=== PATIENT | female | born 2000 | race Two or more races ===

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

== ENCOUNTER 2020-02-24 16:56 | Outpatient (CLI) | payer MEDICAID ==
--- NOTE | 2020-02-25 09:59 | XRAY Report ---
PROCEDURE: Lumbar Spine Complete INDICATIONS: LUMBAR BACK PAIN TECHNIQUE: 4 views of the lumbar spine were acquired. COMPARISON: None. FINDINGS: Bones: 5 [id number] vertebrae are present. There is normal bony alignment. No vertebral body compression fractures. No suspicious bony lesions. No pars defects on the oblique views. Soft tissues: Overlying bowel gas pattern is normal. No suspicious soft tissue calcifications. IMPRESSION: Lumbar spine without acute radiographic abnormalities or significant spondylosis. Reviewed by: Sean Ellison MD on 02/25/2020 9:58 AM PDT Approved by: Sean Ellison MD on 02/25/2020 9:58 AM PDT Station ID: [id number]
== END 2020-02-24 16:57 | disposition home or self-care (01) ==
LOC: DI 16:56
PROVIDERS: ATTEND Family Medicine
DX: M54.5 Low back pain (principal)
CPT/HCPCS: 72110

== ENCOUNTER 2020-08-01 08:00 | Outpatient (CLI) | payer MEDICAID ==
[2020-08-01 18:20] LABS: BASOPHILS % (AUTO) 0.3 %; EOSINOPHILS # (AUTO) 0.1 10^3/uL (0.0-0.7); EOSINOPHILS % (AUTO) 1.2 %; HCT - HEMATOCRIT 43.1 % (37.0-47.0); HGB - HEMOGLOBIN 13.9 g/dL (12.0-16.0); LYMPHOCYTES # (AUTO) 1.5 10^3/uL (1.5-3.5); LYMPHOCYTES % (AUTO) 21.9 %; MEAN CORPUSCULAR HEMOGLOBIN 28.7 pg (27.0-31.0); MEAN CORPUSCULAR HGB CONC 32.3 g/dL (32.0-36.0); MEAN PLATELET VOLUME 10.8 fL (7.9-10.8); MONOCYTES # (AUTO) 0.5 10^3/uL (0.0-1.0); MONOCYTES % (AUTO) 7.2 %; NEUTROPHILS # (AUTO) 4.7 10^3/uL (1.5-6.6); NEUTROPHILS % (AUTO) 69.1 %; PLT - PLATELET COUNT 258 10^3/uL (130-450); RED BLOOD COUNT 4.84 10^6/uL (4.20-5.40); WHITE BLOOD COUNT 6.8 x10^3/uL (4.8-10.8)
[2020-08-01 19:18] LABS: % IRON SATURATION 19 % (20-50); ALBUMIN 4.7 g/dL (3.2-5.5); ALBUMIN/GLOBULIN RATIO 1.4 (1.0-2.2); ALKALINE PHOSPHATASE 55 IU/L (42-121); ALT ALANINE AMINOTRANSFERASE 15 IU/L (10-60); AST ASPARTATE AMINOTRANSFERASE 18 IU/L (10-42); BILIRUBIN,TOTAL 0.8 mg/dL (0.2-1.0); BUN - BLOOD UREA NITROGEN 11 mg/dL (6-20); CALCIUM 9.3 mg/dL (8.5-10.3); CARBON DIOXIDE - CO2 22 mmol/L (21-32); CHLORIDE 102 mmol/L (101-111); CREATININE 0.6 mg/dL (0.4-1.0); GFR - MDRD 127 (>89); GLUCOSE 79 mg/dL (70-100); IRON 83 ug/dL (28-170); POTASSIUM 3.8 mmol/L (3.5-5.0); SODIUM 134 mmol/L (135-145); THYROID STIMULATING HORMONE 1.06 uIU/mL (0.34-5.60); TOTAL IRON BINDING CAPACITY 434 ug/dL (250-450); TOTAL PROTEIN 8.1 g/dL (6.7-8.2); TRANSFERRIN 310 mg/dL (192-382)
[2020-08-01 19:24] LABS: FERRITIN 13.3 ng/mL (11.0-306.8)
[2020-08-01 19:44] LABS: CRP - C-REACTIVE PROTEIN < 1.0 mg/dL (0-1.0)
[2020-08-01 19:54] LABS: RHEUMATOID FACTOR NEGATIVE (Negative)
[2020-08-03 12:32] LABS: ANA SCREEN NEGATIVE (NEGATIVE)
== END 2020-08-01 23:59 | disposition home or self-care (01) ==
LOC: LAB.WCP 08:00
PROVIDERS: ATTEND Internal Medicine
DX: Z39.2 Encounter for routine postpartum follow-up (principal); M54.5 Low back pain; G89.29 Other chronic pain
CPT/HCPCS: 36415; 80053; 82728; 83540; 84443; 84466; 85025; 85651; 86038; 86140; 86200; 86430; 86812

== ENCOUNTER 2021-05-16 23:25 | Emergency (ER) | payer MEDICAID ==
--- NOTE | 2021-05-17 00:24 | XRAY Report ---
PROCEDURE: Hand 3 View RT INDICATIONS: Punched wall, now has pain and swelling to R hand. TECHNIQUE: 3 views of the hand(s) acquired. COMPARISON: None FINDINGS: Bones: Acute oblique fracture through fifth metacarpal base is seen with slight dorsal displacement a t fracture site. No other fracture or dislocation. No suspicious bony lesions. Soft tissues: Soft tissue swelling over dorsal aspect of fifth metacarpal bone is seen. No suspicious soft tissue calcifications. IMPRESSION: Slightly displaced fifth metacarpal base fracture as above. Reviewed by: Joey Marin MD on 05/17/2021 12:23 AM PST Approved by: Joey Marin MD on 05/17/2021 12:23 AM PST Station ID: [id number]
--- NOTE | 2021-05-17 01:26 | ED Physician Documentation ---
PD HPI UPPER EXT INJURY - Stated complaint Stated Complaint: RT HAND INJ - Chief complaint Chief Complaint: Ext Problem - History obtained from History obtained from: Patient - History of Present Illness Location: Right, Hand Type of injury: Blunt / blow Where injury occurred: Home Timing - onset: Enter time (22:30), Today Timing - details: Abrupt onset Pain level now: 6 Improved by: Rest Worsened by: Moving, Palpating Associated symptoms: Swelling Similar symptoms before: Has not had sx before - Additonal information Additional information: c/o sudden onset right hand pain when she punched a wall. She is right hand dominant. Review of Systems Skin: reports: Reviewed and negative Musculoskeletal: reports: Extremity pain, Extremity swelling Neurologic: denies: Focal weakness, Numbness PD PAST MEDICAL HISTORY - Past Medical History Cardiovascular: None Respiratory: None Neuro: None Endocrine/Autoimmune: None GI: None PHOTO LAB TECHNICIAN: None : None HEENT: None Psych: Depression, Anxiety, Post traumatic stress disorder Musculoskeletal: None Derm: None - Past Surgical History Past Surgical History: No - Present Medications Home Medications: Ambulatory Orders Medication Instructions Recorded Confirmed HYDROcod/ACETAM 5/325 [Alexis 5/325] 1 - 2 tablet PO Q6H PRN #14 tablet 05/17/21 - Allergies Allergies/Adverse Reactions: Allergies Allergy/AdvReac Type Severity Reaction Status Date / Time No Known Drug Allergies Allergy Verified 05/16/21 23:34 - Social History Does the pt smoke?: No Smoking Status: Never smoker Does the pt drink ETOH?: No Does the pt have substance abuse?: Yes - Immunizations Immunizations are current?: Yes - POLST Patient has POLST: No PD ED PE NORMAL - Vitals Vital signs reviewed: Yes - General General: Alert and oriented X 3, No acute distress, Well developed/nourished - Neuro Neuro: No motor deficit, No sensory deficit PD ED PE EXPANDED - Extremities Extremities: Tenderness, Swelling, Bruising, Other (right hand tenderness, swelling, echymosis greatest over proximal aspect of 5th metacarpal and at third and fourth metacarpal heads) Results - Vitals Vitals: Oxygen O2 Source Room air - Rads (name of study) right hand xrays Radiology: Prelim report reviewed, See rad report Procedures - Splint (location) Upper extremity right Splint applied by: Physician Type of splint: Fiberglass, Short arm, Ulnar gutter Other: Patient tolerated well, No complications, Neurovascular intact, Sling provided PD MEDICAL DECISION MAKING - ED course Complexity details: reviewed results, considered differential, d/w patient ED course: right boxers fracture after punching a wall tonight. ulnar gutter splint placed by me. She is given vicodin prior to d/c (is being driven home) with rx for same transmitted to her pharmacy. Results d/w patient, outpatient orthopedic f/u recommended. Departure - Departure Disposition: Home, Self Care Clinical Impression: Boxers fracture Condition: Good Instructions: ED Fx Boxer Follow-Up: Margarito Sparks MD [Provider Admit Priv/Credential] - Within 1 week Prescriptions: HYDROcod/ACETAM 5/325 [Alexis 5/325] 1 - 2 tablet PO Q6H PRN #14 tablet PRN Reason: Pain Comments: A prescription for hydrocodone / acetaminophen (pain medication) has been electronically submitted to [facility]'s pharmacy in [place]. Follow up with orthopedic surgery within one week. Discharge Date/Time: 05/17/21 02:13
[2021-05-17] MEDS: HYDROcod/ACETAM 5/325 MG TABLET PO STA (01:59)
[2021-05-17 02:12] VITALS: BP 133/87
== END 2021-05-17 02:13 | disposition home or self-care (01) ==
LOC: ED 23:25
DX: S62.316A Displaced fracture of base of fifth metacarpal bone, right hand, initial encounter for closed fracture (principal); W22.8XXA Striking against or struck by other objects, initial encounter
CPT/HCPCS: 29125; 73130; 99283; A9270

== ENCOUNTER 2021-05-18 16:22 | Outpatient (CLI) | payer MEDICAID ==
--- NOTE | 2021-05-18 20:36 | XRAY Report ---
PROCEDURE: Hand 3 View RT INDICATIONS: DISPLACED FX OF TECHNIQUE: 3 views of the hand(s) acquired. COMPARISON: 05/16/2021 FINDINGS: Bones: Again noted is slightly displaced fracture involving fifth metacarpal base unchanged in overal l right hand alignment compared to previous study. No new fracture or dislocation is seen. No suspici ous bony lesions. Soft tissues: No suspicious soft tissue calcifications. IMPRESSION: Slightly displaced fifth metacarpal base fracture with unchanged alignment. No new fracture or disloc ation. Reviewed by: Joey Marin MD on 05/18/2021 8:35 PM PST Approved by: Joey Marin MD on 05/18/2021 8:35 PM PST Station ID: [id number]
== END 2021-05-18 23:59 | disposition home or self-care (01) ==
LOC: DI.N 16:22
PROVIDERS: ATTEND Registered Nurse
DX: S62.316D Displaced fracture of base of fifth metacarpal bone, right hand, subsequent encounter for fracture with routine healing (principal)

== ENCOUNTER 2021-07-10 12:24 | Emergency (ER) | payer MEDICAID ==
[2021-07-10 13:08] LABS: BASOPHILS % (AUTO) 0.2 %; EOSINOPHILS % (AUTO) 0.2 %; HCT - HEMATOCRIT 45.6 % (37.0-47.0); HGB - HEMOGLOBIN 15.9 g/dL (12.0-16.0); LYMPHOCYTES # (AUTO) 1.5 10^3/uL (1.5-3.5); LYMPHOCYTES % (AUTO) 14.6 %; MEAN CORPUSCULAR HEMOGLOBIN 29.2 pg (27.0-31.0); MEAN CORPUSCULAR HGB CONC 34.9 g/dL (32.0-36.0); MEAN CORPUSCULAR VOLUME 83.8 fL (81.0-99.0); MEAN PLATELET VOLUME 9.8 fL (7.9-10.8); MONOCYTES # (AUTO) 0.7 10^3/uL (0.0-1.0); MONOCYTES % (AUTO) 7.3 %; NEUTROPHILS # (AUTO) 7.8 10^3/uL (1.5-6.6); NEUTROPHILS % (AUTO) 77.2 %; PLT - PLATELET COUNT 319 10^3/uL (130-450); RED BLOOD COUNT 5.44 10^6/uL (4.20-5.40); RED CELL DISTRIBUTION WIDTH 12.2 % (12.0-15.0); WHITE BLOOD COUNT 10.1 x10^3/uL (4.8-10.8)
--- OUTSIDE RECORDS SUMMARY | 2021-07-10 13:12 | EXTERNAL MEDICAL SUMMARY RPT | Continuity of Care Document ---
:2000 Author Organization [facility] Address [address] [place] [address] Phone Care Team Providers Name Role Phone Mar Unavailable Unavailable Allergies No information. Encounters No information. Medications date description facility 20210708 Promethazine Hydrochloride 25 MG Rectal Suppository [facility] 20210708 Ondansetron 4 MG Disintegrating Tablet [facility] Problems Procedures date description facility 20210707 General Physician [facility] Results No information. Vital Signs date measurement value source 20210707 weight_standard 170 lb 20210707 weight_metric 77.11 kg 20210707 temperature_standard 97 F 20210707 temperature_metric 36.11 C 20210708 respiration_rate 18 /min 20210708 heart_rate 89 /min 20210708 BP_systolic 135 mm[Hg] 20210708 BP_diastolic 86 mm[Hg]
[2021-07-10] MEDS ORDERED: ONDANSETRON ODT 4 MG TABLET TL STA (13:40)
[2021-07-10 14:30] LABS: ALBUMIN 4.8 g/dL (3.2-5.5); ALBUMIN/GLOBULIN RATIO 1.6 (1.0-2.2); BILIRUBIN,TOTAL 1.5 mg/dL (0.2-1.0); CALCIUM 10.2 mg/dL (8.5-10.3); CREATININE 1.1 mg/dL (0.4-1.0); POTASSIUM 3.7 mmol/L (3.5-5.0); TOTAL PROTEIN 7.8 g/dL (6.7-8.2)
[2021-07-10] MEDS ORDERED: DROPERIDOL 5 MG/2 ML VIAL IM STA (14:44)
--- NOTE | 2021-07-10 14:53 | ED Physician Documentation ---
History of Present Illness - Stated complaint Stated Complaint: VOMITING - Chief complaint Chief Complaint: Abd Pain - History obtained from History obtained from: Patient - Additonal information Additional information: Patient comes to the emergency department chief complaint of vomiting for 7 days. The patient has a 6-year history Of cyclical vomiting, for which she has been seen in various emergency departments multiple times. She states that she uses Zofran and antiemetic suppositories at home and they never seem to help. She states usually she states that pacing and does not get much sleep while she is having an episode. She states however that being up actually makes her nausea worse. The patient states she got Zofran in the waiting room here and is feeling better and has been able to sleep a little bit. She states her mouth is dry and she would like some ice chips. The patient was seen at [facility] a couple days ago for the same thing was given multiple medications including Zofran, Haldol, and something else she cannot remember the name of and was given IV fluids. She states that they had a difficult time getting her to tolerate fluids orally right after the meds and finally discharged her home. The patient states she was feeling a little better overnight but then woke up feeling nauseated again which is her usual pattern. She states she does not want to le ave until she can be guaranteed that she will wake up nauseated again. She states she has seen her primary care physician and is previously seen a compliance review specialist who diagnosed her with H. pylori and then did a scope and told her she did not have H. pylori or any gastritis or ulcers. She states that her primary doctor has referred her to another compliance review specialist now. She states her mother has cyclical vomiting issues as well. The patient has a 1-year-old at home and states she is under a lot of stress because she is dealing with this plus trying to care for her child. She does smoke marijuana but is resistant to the idea that marijuana may be related to her illness. No other complaints at this time. Review of Systems Ten Systems: 10 systems reviewed and negative Constitutional: reports: Reviewed and negative Eyes: reports: Reviewed and negative Ears: reports: Reviewed and negative Nose: reports: Reviewed and negative Throat: reports: Reviewed and negative Cardiac: reports: Reviewed and negative Respiratory: reports: Reviewed and negative GI: reports: Nausea, Vomiting. denies: Abdominal Pain : reports: Reviewed and negative Skin: reports: Reviewed and negative Musculoskeletal: reports: Reviewed and negative Neurologic: reports: Reviewed and negative Psychiatric: reports: Reviewed and negative Endocrine: reports: Reviewed and negative Immunocompromised: reports: Reviewed and negative PD PAST MEDICAL HISTORY - Past Medical History Cardiovascular: None Respiratory: None Neuro: None Endocrine/Autoimmune: None GI: None MIME ARTIST: None : None HEENT: None Psych: Depression, Anxiety, Post traumatic stress disorder Musculoskeletal: None Derm: None - Past Surgical History Past Surgical History: No - Present Medications Home Medications: Ambulatory Orders Medication Instructions Recorded Confirmed HYDROcod/ACETAM 5/325 [[place] 5/325] 1 - 2 tablet PO Q6H PRN #14 tablet 05/17/21 - Allergies Allergies/Adverse Reactions: Allergies Allergy/AdvReac Type Severity Reaction Status Date / Time No Known Drug Allergies Allergy Verified 07/10/21 12:35 - Social History Does the pt smoke?: No Smoking Status: Never smoker Does the pt drink ETOH?: No Does the pt have substance abuse?: Yes - Immunizations Immunizations are current?: Yes - POLST Patient has POLST: No PD ED PE NORMAL - Vitals Vital signs reviewed: Yes - General General: Alert and oriented X 3, No acute distress, Well developed/nourished - HEENT HEENT: Atraumatic, PERRL, EOMI, Moist mucous membranes - Neck Neck: Supple, no meningeal sign - Cardiac Cardiac: RRR, No murmur, Strong equal pulses - Respiratory Respiratory: No respiratory distress, Clear bilaterally - Abdomen Abdomen: Soft, Non distended, Other (Mild lower abdominal tenderness, no rebound or guarding) - Derm Derm: Normal color, Warm and dry - Extremities Extremities: No deformity, No edema - Neuro Neuro: Alert and oriented X 3, rewinder 2-12 intact, Normal speech - Psych Psych: Normal mood, Normal affect Results - Vitals Vitals: Vital Signs - 24 hr 07/10/21 07/10/21 12:32 15:02 Temperature 36.4 C L 36.6 C Heart Rate 82 71 Respiratory 16 16 Rate Blood Pressure 150/107 H 122/92 H O2 Saturation 97 99 Oxygen O2 Source Room air - Labs Labs: Laboratory Tests 07/10/21 07/10/21 13:02 13:02 WBC 10.1 RBC 5.44 H Hgb 15.9 Hct 45.6 MCV 83.8 MCH 29.2 MCHC 34.9 RDW 12.2 Plt Count 319 MPV 9.8 Neut # (Auto) 7.8 H Lymph # (Auto) 1.5 [place] # (Auto) 0.7 Eos # (Auto) 0.0 Baso # (Auto) 0.0 Absolute Nucleated RBC 0.00 Nucleated RBC % 0.0 Sodium 133 L Potassium 3.7 Chloride 91 L Carbon Dioxide 30 Anion Gap 12.0 BUN 15 Creatinine 1.1 H Estimated GFR (MDRD) 63 L Glucose 111 H Calcium 10.2 Total Bilirubin 1.5 H AST 13 ALT 15 Alkaline Phosphatase 57 Total Protein 7.8 Albumin 4.8 Globulin 3.0 Albumin/Globulin Ratio 1.6 Lipase 33 PD MEDICAL DECISION MAKING - ED course Complexity details: considered differential, d/w patient ED course: I discussed with the patient that at this point in time, I cannot guarantee that the patient will not wake up nauseated, because she has this issue chronically and so far, has not found a good solution for it. I have discussed with her that I do not feel that it is always helpful to do a p.o. challenge in the ED because usually, it is best to give the stomach a break for several hours from any intake and a chance to settle down. The patient has been allowed to suck on a couple of ice chips here and has been given doses of both Zofran and droperidol. Her blood work is unremarkable. I discussed with her that it is very important that she follow up on the plan to see another compliance review specialist. She has also been advised regarding the marijuana. We have discussed the usual indications for return. Departure - Departure Disposition: 01 Home, Self Care Clinical Impression: Cyclical vomiting Condition: Stable Instructions: ED Nausea Vomiting Comments: You have been treated with 2 different antinausea medicines in the emergency department. You should give your stomach a rest of several hours before trying to put anything else in it, to allow it to settle down to be less likely to vomit again. After this, you may take small sips of water or a single ice chip at a time, with a 15 to 20-minute wait in between. If you are able to hold down the initial ice chips or spoonful of water, you may take another 1 after 15 to 20 minutes. You may continue to do this as long as you do not vomit at 15 to 20-minute intervals with not more than 1 ice chip or one spoonful of water. If you tolerate this for several times, then you may wait only 10 minutes between the sips of water or ice chips. You should continue to take your nausea medi cine at home, as usual. Please follow-up with your doctor to discuss moving forward with a referral for a second opinion by gastroenterology.
[2021-07-10 15:02] VITALS: BP 122/92
== END 2021-07-10 15:53 | disposition home or self-care (01) ==
LOC: ED 12:24
DX: R11.15 Cyclical vomiting syndrome unrelated to migraine (principal)
CPT/HCPCS: 36415; 80053; 83690; 85025; 96372; 99283; 99284; Q0162

== ENCOUNTER 2021-07-14 18:17 | Outpatient (CLI) | payer MEDICAID ==
[2021-07-14 21:28] LABS: BASOPHILS % (AUTO) 0.2 %; EOSINOPHILS # (AUTO) 0.1 10^3/uL (0.0-0.7); EOSINOPHILS % (AUTO) 1.1 %; HCT - HEMATOCRIT 42.4 % (37.0-47.0); HGB - HEMOGLOBIN 13.9 g/dL (12.0-16.0); LYMPHOCYTES % (AUTO) 9.2 %; MEAN CORPUSCULAR HEMOGLOBIN 28.8 pg (27.0-31.0); MEAN CORPUSCULAR HGB CONC 32.8 g/dL (32.0-36.0); MEAN CORPUSCULAR VOLUME 87.8 fL (81.0-99.0); MONOCYTES # (AUTO) 0.6 10^3/uL (0.0-1.0); MONOCYTES % (AUTO) 5.9 %; NEUTROPHILS # (AUTO) 8.6 10^3/uL (1.5-6.6); PLT - PLATELET COUNT 246 10^3/uL (130-450); RED BLOOD COUNT 4.83 10^6/uL (4.20-5.40); RED CELL DISTRIBUTION WIDTH 12.6 % (12.0-15.0); WHITE BLOOD COUNT 10.4 x10^3/uL (4.8-10.8)
[2021-07-14 21:41] LABS: ALBUMIN 4.2 g/dL (3.2-5.5); ALBUMIN/GLOBULIN RATIO 1.4 (1.0-2.2); BILIRUBIN,TOTAL 1.4 mg/dL (0.2-1.0); CALCIUM 9.3 mg/dL (8.5-10.3); CREATININE 0.9 mg/dL (0.4-1.0); POTASSIUM 3.6 mmol/L (3.5-5.0); TOTAL PROTEIN 7.3 g/dL (6.7-8.2)
[2021-07-14 21:44] LABS: BILIRUBIN,URINE NEGATIVE (NEGATIVE); GLUCOSE, URINE (UA) NEGATIVE (NEGATIVE); KETONES,URINE (UA) NEGATIVE (NEGATIVE); LEUKOCYTE ESTERASE, URINE NEGATIVE (NEGATIVE); NITRITE,URINE NEGATIVE (NEGATIVE); OCCULT BLOOD,URINE NEGATIVE (NEGATIVE); PROTEIN,URINE NEGATIVE (NEGATIVE); UROBILINOGEN,URINE 0.2 (NORMAL) E.U./dL (NORMAL)
[2021-07-14 21:55] LABS: THYROID STIMULATING HORMONE 0.96 uIU/mL (0.34-5.60)
[2021-07-14 21:59] LABS: BACTERIA,URINE None Seen /HPF (None Seen); CLARITY,URINE SL. CLOUDY (CLEAR); CRYSTALS,URINE 26-50 Ca Oxalate /LPF; RBC,URINE 0-5 /HPF (0-5); SQUAMOUS EPITHELIAL CELL,UR RARE Squamous (<= Few); WBC,URINE 0-3 /HPF (0-5)
== END 2021-07-14 18:18 | disposition home or self-care (01) ==
LOC: LAB.N 18:17
PROVIDERS: ATTEND Nurse Practitioner
DX: R10.9 Unspecified abdominal pain (principal); R53.83 Other fatigue
CPT/HCPCS: 36415; 80053; 81001; 82150; 82607; 83690; 84443; 85025; 87086

== ENCOUNTER 2021-07-18 10:45 | Outpatient (CLI) | payer MEDICAID ==
--- NOTE | 2021-07-18 11:20 | XRAY Report ---
PROCEDURE: Hand 3 View RT INDICATIONS: 5TH MC FRACTURE TECHNIQUE: 3 views of the hand(s) acquired. COMPARISON: May 18, 2021 FINDINGS: BONES: The previously demonstrated displaced fracture of the fifth metacarpal base is not well seen b ut demonstrates increase sclerosis at the fracture site. SOFT TISSUES: No focal abnormality. IMPRESSION: 1.Ongoing healing of the patient's fifth metacarpal base fracture, not well visualized. Reviewed by: Manas Gutierrez MD on 07/18/2021 11:18 AM PDT Approved by: Manas Gutierrez MD on 07/18/2021 11:18 AM PDT Station ID: [id number]
== END 2021-07-18 23:59 | disposition home or self-care (01) ==
LOC: DI.WOS 10:45
PROVIDERS: ATTEND Physician Assistant
DX: S62.316D Displaced fracture of base of fifth metacarpal bone, right hand, subsequent encounter for fracture with routine healing (principal)

== ENCOUNTER 2021-10-27 08:00 | Outpatient (CLI) | payer MEDICAID ==
[2021-10-27 12:27] LABS: BASOPHILS % (AUTO) 0.1 %; HCT - HEMATOCRIT 41.4 % (37.0-47.0); HGB - HEMOGLOBIN 14.2 g/dL (12.0-16.0); LYMPHOCYTES # (AUTO) 0.9 10^3/uL (1.5-3.5); LYMPHOCYTES % (AUTO) 5.1 %; MEAN CORPUSCULAR HEMOGLOBIN 29.5 pg (27.0-31.0); MEAN CORPUSCULAR HGB CONC 34.3 g/dL (32.0-36.0); MEAN CORPUSCULAR VOLUME 86.1 fL (81.0-99.0); MEAN PLATELET VOLUME 11.2 fL (7.9-10.8); MONOCYTES # (AUTO) 0.9 10^3/uL (0.0-1.0); MONOCYTES % (AUTO) 5.1 %; NEUTROPHILS # (AUTO) 15.7 10^3/uL (1.5-6.6); NEUTROPHILS % (AUTO) 89.2 %; PLT - PLATELET COUNT 342 10^3/uL (130-450); RED BLOOD COUNT 4.81 10^6/uL (4.20-5.40); RED CELL DISTRIBUTION WIDTH 12.7 % (12.0-15.0); WHITE BLOOD COUNT 17.6 x10^3/uL (4.8-10.8)
[2021-10-27 12:45] LABS: ALBUMIN 4.8 g/dL (3.2-5.5); ALBUMIN/GLOBULIN RATIO 1.3 (1.0-2.2); BILIRUBIN,TOTAL 0.9 mg/dL (0.2-1.0); CALCIUM 10.3 mg/dL (8.5-10.3); CREATININE 0.8 mg/dL (0.4-1.0); TOTAL PROTEIN 8.5 g/dL (6.7-8.2)
[2021-10-27 12:59] LABS: HCG,QUALITATIVE BLOOD POSITIVE
== END 2021-10-27 23:59 | disposition home or self-care (01) ==
LOC: LAB.N 08:00
PROVIDERS: ATTEND Nurse Practitioner
DX: R11.10 Vomiting, unspecified (principal)
CPT/HCPCS: 36415; 80053; 82150; 83690; 84703; 85025

== ENCOUNTER 2021-10-27 13:48 | Emergency (ER) | payer MEDICAID ==
[2021-10-27 14:08] VITALS: BP 146/87
--- NOTE | 2021-10-27 16:41 | ED Physician Documentation ---
ED Addendum - Addendum Addendum: 10/27/21 16:40 21-year-old female had presented to the emergency department for nausea and vomiting. I do note that labs were obtained by an outside clinic this morning and her qualitative hCG was positive. I then added a quantitative hCG and it was greater than 155,000. The patient left without being seen before she was able to be brought back to the emergency department. I called the phone number listed for the patient requesting a phone call back to discuss the lab results. It is not clear to this provider if the patient is aware that she is 10/27/21 17:14 Phone message left again requesting return phone call.
== END 2021-10-27 16:39 | disposition left against medical advice (07) ==
LOC: ED 13:48
DX: Z53.21 Procedure and treatment not carried out due to patient leaving prior to being seen by health care provider (principal)
CPT/HCPCS: 36415; 84702

== ENCOUNTER 2021-10-28 01:15 | Emergency (ER) | payer MEDICAID ==
[2021-10-28] MEDS ORDERED: ONDANSETRON 4 MG/2 ML VIAL IVP STA (03:01)
[2021-10-28] MEDS ORDERED: SODIUM CHLORIDE 0.9% 1,000 ML IV STA ×2 (03:01→04:40)
--- NOTE | 2021-10-28 03:09 | ED Physician Documentation ---
PD HPI ABD PAIN - Stated complaint Stated Complaint: vomiting - Chief complaint Chief Complaint: Abd Pain - History obtained from History obtained from: Patient - Additional information Additional information: Patient is a 21-year-old female with a history of cyclic vomiting presenting for 4-day history of nausea and vomiting and generalized abdominal discomfort. Her last menstrual cycle was 2 months ago. She did present earlier to the emergency department but left prior to being seen. She did have blood work done that showed a positive hCG.Patient has not yet had care for this . She is a G3, P1 with 1 previous . She reports having hyperemesis with previous and had the because of her previous history of hyperemesis.She does have Zofran at home and has been using that without improvement in her symptoms. She does use cannabis but says that it is not a lot and does not believe it is contributing to her symptoms. She denies fever, chest pain or difficulty breathing. Sometimes hot showers help her symptoms. She denies diarrhea. Review of Systems Constitutional: denies: Fever Nose: denies: Congestion Cardiac: denies: Chest pain / pressure Respiratory: denies: Dyspnea, Cough GI: reports: Abdominal Pain, Nausea, Vomiting : denies: Dysuria Musculoskeletal: denies: Back pain Neurologic: denies: Headache PD PAST MEDICAL HISTORY - Past Medical History Cardiovascular: None Respiratory: None Neuro: None Endocrine/Autoimmune: None GI: None YEAST PUSHER: None : None HEENT: None Psych: Depression, Anxiety, Post traumatic stress disorder Musculoskeletal: None Derm: None - Past Surgical History Past Surgical History: No - Present Medications Home Medications: Ambulatory Orders Medication Instructions Recorded Confirmed HYDROcod/ACETAM 5/325 [[place] 5/325] 1 - 2 tablet PO Q6H PRN #14 tablet 05/17/21 - Allergies Allergies/Adverse Reactions: Allergies Allergy/AdvReac Type Severity Reaction Status Date / Time No Known Drug Allergies Allergy Verified 10/28/21 01:23 - Social History Does the pt smoke?: No Smoking Status: Never smoker Does the pt drink ETOH?: No Does the pt have substance abuse?: Yes - Immunizations Immunizations are current?: Yes - POLST Patient has POLST: No PD ED PE NORMAL - General General: Alert and oriented X 3, No acute distress, Well developed/nourished - HEENT HEENT: Atraumatic, Other (Dry oral mucosa) - Neck Neck: Supple, no meningeal sign - Cardiac Cardiac: RRR, No murmur, Strong equal pulses - Respiratory Respiratory: No respiratory distress, Clear bilaterally - Abdomen Abdomen: Normal bowel sounds, Soft, Non distended, Other (Generalized abdominal tenderness, no rebound, No guarding) - Extremities Extremities: No edema - Neuro Neuro: No motor deficit, Normal speech - Psych Psych: Normal mood Results - Vitals Vitals: Vital Signs - 24 hr 10/28/21 10/28/21 10/28/21 01:24 03:26 05:00 Temperature 36.5 C Heart Rate 69 59 L 76 Respiratory 22 24 19 Rate Blood Pressure 149/90 H 122/73 123/73 O2 Saturation 99 100 99 Oxygen O2 Source Room air - Labs Labs: Laboratory Tests 10/28/21 10/28/21 10/28/21 03:27 04:05 04:05 WBC 16.0 H RBC 4.80 Hgb 14.4 Hct 41.4 MCV 86.3 MCH 30.0 MCHC 34.8 RDW 12.2 Plt Count 292 MPV 10.2 Neut # (Auto) 14.2 H Lymph # (Auto) 0.9 L [place] # (Auto) 0.8 Eos # (Auto) 0.0 Baso # (Auto) 0.0 Absolute Nucleated RBC 0.00 Nucleated RBC % 0.0 Sodium 134 L Potassium 3.4 L Chloride 98 L Carbon Dioxide 24 Anion Gap 12.0 BUN 14 Creatinine 0.6 Estimated GFR (MDRD) 126 Glucose 113 H POC Whole Bld Glucose 117 H Calcium 9.3 Total Bilirubin 1.5 H AST 22 ALT 21 Alkaline Phosphatase 42 Total Protein 7.5 Albumin 4.2 Globulin 3.3 Albumin/Globulin Ratio 1.3 Lipase 31 Urine Color Urine Clarity Urine pH Ur Specific [place] Urine Protein Urine Glucose (UA) Urine Ketones Urine Occult Blood Urine Nitrite Urine Bilirubin Urine Urobilinogen Ur Leukocyte Esterase Urine RBC Urine WBC Ur Squamous Epith Cells Urine Bacteria Urine Mucus Ur Microscopic Review Urine Culture Comments Blood Type 10/28/21 10/28/21 04:05 04:25 WBC RBC Hgb Hct MCV MCH MCHC RDW Plt Count MPV Neut # (Auto) Lymph # (Auto) [place] # (Auto) Eos # (Auto) Baso # (Auto) Absolute Nucleated RBC Nucleated RBC % Sodium Potassium Chloride Carbon Dioxide Anion Gap BUN Creatinine Estimated GFR (MDRD) Glucose POC Whole Bld Glucose Calcium Total Bilirubin AST ALT Alkaline Phosphatase Total Protein Albumin Globulin Albumin/Globulin Ratio Lipase Urine Color YELLOW Urine Clarity HAZY Urine pH 6.5 Ur Specific [place] 1.020 Urine Protein TRACE Urine Glucose (UA) NEGATIVE Urine Ketones 40 H Urine Occult Blood NEGATIVE Urine Nitrite NEGATIVE Urine Bilirubin NEGATIVE Urine Urobilinogen 1 (NORMAL) Ur Leukocyte Esterase SMALL H Urine RBC 0-5 Urine WBC 4-5 Ur Squamous Epith Cells MOD Squamous H Urine Bacteria Few Urine Mucus Few Strands Ur Microscopic Review INDICATED Urine Culture Comments NOT INDICATED Blood Type O POSITIVE PD MEDICAL DECISION MAKING - ED course Complexity details: reviewed results, re-evaluated patient, d/w patient ED course: 0308 - + intrauterine seen on bedside ultrasound with + cardiac activity 0532 - Patient just received her second round of medications and additional IV fluids. She is pacing in the room. She reports wanting to leave as she wants to go home and take a hot shower. Discussed are planned for ultrasound when it is available later this morning.Also recommended continuing to stay for further relief of her symptoms and she continues to report severe nausea. Discussed the risks of leaving which include miscarriage, dehydration, and Not having formal ultrasound to evaluate viability and location of . Patient understands these risks and partner is at the bedside. Patient is alert and oriented x4. She appears competent and able to make medical decisions at this time. She Is counseled that she can return to the ER at any time should she change her mind. Departure - Departure Disposition: Against Medical Advice Clinical Impression: Vomiting affecting Condition: Stable Instructions: ED Preg Morning Sickness Comments: You have been evaluated for nausea and vomiting. You are also found to be . At this time it is unclear how far along you are in your . I was able to visualize The fetus with our bedside ultrasound but do not have the capabilities to tell you exactly how far along you are and if things are developing normally.I did recommend you stay so that we can obtain an ultrasound As well as continue to monitor your symptoms as they were not significantly improved. If it anytime you change your mind Or have any worsening symptoms please return to the emergency department. Discharge Date/Time: 10/28/21 05:32
[2021-10-28 04:13] LABS: BASOPHILS % (AUTO) 0.1 %; HCT - HEMATOCRIT 41.4 % (37.0-47.0); HGB - HEMOGLOBIN 14.4 g/dL (12.0-16.0); LYMPHOCYTES # (AUTO) 0.9 10^3/uL (1.5-3.5); LYMPHOCYTES % (AUTO) 5.6 %; MEAN CORPUSCULAR HGB CONC 34.8 g/dL (32.0-36.0); MEAN CORPUSCULAR VOLUME 86.3 fL (81.0-99.0); MEAN PLATELET VOLUME 10.2 fL (7.9-10.8); MONOCYTES # (AUTO) 0.8 10^3/uL (0.0-1.0); MONOCYTES % (AUTO) 5.2 %; NEUTROPHILS # (AUTO) 14.2 10^3/uL (1.5-6.6); NEUTROPHILS % (AUTO) 88.7 %; PLT - PLATELET COUNT 292 10^3/uL (130-450); RED CELL DISTRIBUTION WIDTH 12.2 % (12.0-15.0)
[2021-10-28 04:24] LABS: ALBUMIN 4.2 g/dL (3.2-5.5); ALBUMIN/GLOBULIN RATIO 1.3 (1.0-2.2); BILIRUBIN,TOTAL 1.5 mg/dL (0.2-1.0); CALCIUM 9.3 mg/dL (8.5-10.3); CREATININE 0.6 mg/dL (0.4-1.0); POTASSIUM 3.4 mmol/L (3.5-5.0); TOTAL PROTEIN 7.5 g/dL (6.7-8.2)
[2021-10-28 04:36] LABS: GLUCOSE, URINE (UA) NEGATIVE (NEGATIVE); KETONES,URINE (UA) 40 mg/dL (NEGATIVE); LEUKOCYTE ESTERASE, URINE SMALL (NEGATIVE); NITRITE,URINE NEGATIVE (NEGATIVE); OCCULT BLOOD,URINE NEGATIVE (NEGATIVE); PH,URINE 6.5 PH (5.0-7.5); PROTEIN,URINE TRACE mg/dL (NEGATIVE); UROBILINOGEN,URINE 1 (NORMAL) E.U./dL (NORMAL)
[2021-10-28] MEDS ORDERED: diphenhydrAMINE INJ 50 MG/ML VIAL IVP STA (04:38)
[2021-10-28] MEDS ORDERED: METOCLOPRAMIDE 10 MG/2 ML VIAL IVP STA (04:38)
[2021-10-28 04:43] LABS: CLARITY,URINE HAZY (CLEAR)
[2021-10-28 04:46] LABS: BACTERIA,URINE Few /HPF (None Seen); BILIRUBIN,URINE NEGATIVE (NEGATIVE); ICTOTEST,URINE NEGATIVE; MUCUS,URINE Few Strands; RBC,URINE 0-5 /HPF (0-5); SQUAMOUS EPITHELIAL CELL,UR MOD Squamous (<= Few)
[2021-10-28 05:15] VITALS: BP 123/73
== END 2021-10-28 05:32 | disposition left against medical advice (07) ==
LOC: ED 01:15
DX: O21.0 Mild hyperemesis gravidarum (principal); Z3A.00 Weeks of gestation of pregnancy not specified
CPT/HCPCS: 36415; 80053; 81001; 83690; 85025; 86900; 86901; 96374; 96375; 99282; 99284; J1200; J2765; 81003; 87086

== ENCOUNTER 2022-03-20 16:00 | Outpatient (CLI) | payer MEDICAID ==
[2022-03-21 22:00] LABS: BACTERIAL VAGINOSIS DNA POSITIVE (NEGATIVE); CANDIDA GLABRATA DNA NEGATIVE (NEGATIVE); CANDIDA GROUP DNA NEGATIVE (NEGATIVE); CANDIDA KRUSEI DNA NEGATIVE (NEGATIVE); TRICHOMONAS VAGINALIS DNA NEGATIVE (NEGATIVE)
[2022-03-21 23:12] LABS: CHLAMYDIA TRACHOMATIS DNA NEGATIVE (NEGATIVE); NEISSERIA GONORRHOEAE DNA NEGATIVE (NEGATIVE)
== END 2022-03-20 23:59 | disposition home or self-care (01) ==
LOC: LAB.WC 16:00
PROVIDERS: ATTEND Nurse Practitioner
DX: N89.8 Other specified noninflammatory disorders of vagina (principal); Z11.3 Encounter for screening for infections with a predominantly sexual mode of transmission
CPT/HCPCS: 81514; 87491; 87591; 87661

== ENCOUNTER 2024-08-16 13:41 | Observation (INO) ==
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
--- OUTSIDE RECORDS SUMMARY | 2024-08-16 13:58 | EXTERNAL MEDICAL SUMMARY RPT | Continuity of Care Document ---
Author Organization [facility] Address [address] [address] Phone Problems date description facility 2024-07-12 22:19 Muscle spasm of back [facility] 2024-07-12 22:44 Muscle sp[facility] of [facility] 2024-07-16 13:45 Muscle spasm of back [facility] 2024-07-16 13:45 Vomiting, unspecified [facility] 2024-08-14 18:47 Mild hyperemesis gravidarum [facility] 2024-08-14 18:47 12 weeks gestation of [facility] 2024-08-15 01:24 Mild hyperemesis gravidarum [facility] 2024-08-15 01:24 12 weeks gestation of [facility] 2024-08-15 11:31 Cannabis use, unspecified, unco mplicated [facility] 2024-08-15 11:31 Hyperemesis gravidarum with met abolic disturbance [facility] 2024-08-15 11:31 Nausea with vomiting, unspecifi ed [facility] 2024-08-15 11:31 12 weeks gestation of [facility] 2024-08-15 11:32 Cannabis use, unspecified, unco mplicated [facility] 2024-08-15 11:32 Hyperemesis gravidarum with met abolic disturbance [facility] 2024-08-15 11:32 Nausea with vomiting, unspecifi ed [facility] 2024-08-15 11:32 12 weeks gestation of [facility] 2024-08-15 12:42 Mild hyperemesis gravidarum [facility] 2024-08-15 12:42 12 weeks gestation of [facility] 2024-08-15 12:48 Mild hyperemesis gravidarum [facility] 2024-08-15 12:48 12 weeks gestation of [facility] 2024-08-16 05:47 Cannabis use, unspecified, unco mplicated [facility] 2024-08-16 05:47 Hyperemesis gravidarum with met abolic disturbance [facility] 2024-08-16 05:47 Nausea with vomiting, unspecifi ed [facility] 2024-08-16 05:47 12 weeks gestation of [facility] Results/Labs test date facility value unit notes Result panel 1 UROBILINOGEN,URINE 2024-07-12:30 [facility] 0.2 (NORMAL) e.u./dl (missing) SPECIFIC GRAVITY,URINE 2024-07-12:[address] [place] [address] 1.010 (missing) (missing) PH,URINE 2024-07-12:[address] [place] [address] 6.0 ph (missing) CLARITY,URINE 2024-07-12:[address] [place] [address] CLEAR (missing) (missing) LEUKOCYTE ESTERASE, URINE 2024-07-12:[address] [place] [address] NEGATIVE (missing) (missing) NITRITE,URINE 2024-07-12:[address] [place] [address] NEGATIVE (missing) (missing) OCCULT BLOOD,URINE 2024-07-12:[address] [place] [address] NEGATIVE (missing) (missing) BILIRUBIN,URINE 2024-07-12:[address] [place] [address] NEGATIVE (missing) Bilirubin can be influenced by color interference. Please correlate positive results with clinical presentation HCG UR QUAL 2024-07-12:30 [facility] NEGATIVE (missing) URINE CLEAN CATCH INTERPRETIVE INFORMATION Urine hCG: Non- females: Negative females: Positive In some cases the level of hCG may be below the sensitivity of the test. Additionally, a very dilute urine specimen, may not contain inbound customer service representative levels of hCG. If is still suspected, follow up testing on a first morning urine specimen or serum hCG testing is recommended. GLUCOSE, URINE (UA) 2024-07-12:30 [facility] NEGATIVE mg/dl (missing) KETONES,URINE (UA) 2024-07-12:[address] [place] [address] NEGATIVE mg/dl (missing) PROTEIN,URINE 2024-07-12:[address] [place] [address] NEGATIVE mg/dl (missing) UR CULTURE IF IND 2024-07-12:[address] [place] [address] NOT INDICATED (missing) (missing) URINE MICROSCOPIC INDICATED? 2024-07-12:[address] [place] [address] NOT INDICATED (missing) (missing) HCG UR QUAL 2024-07-12 21:30 [facility] POSITIVE (missing) URINE CLEAN CATCH INTERPRETIVE INFORMATION Urine hCG: Non- females: Negative females: Positive In some cases the level of hCG may be below the sensitivity of the test. Additionally, a very dilute urine specimen, may not contain inbound customer service representative levels of hCG. If is still suspected, follow up testing on a first morning urine specimen or serum hCG testing is recommended. COLOR,URINE 2024-07-12 21:30 [facility] YELLOW (missing) URINE CLEAN CATCH Result panel 2 Basophils Absolute Auto 2024-08-14 02: [facility] 0 /ul (missing) Eosinophils Absolute Auto 2024-08-14 02:01 [facility] 0 /ul (missing) Eosinophils Percent Auto 2024-08-14 02: [facility] 0. 0 % (missing) Basophils Percent Auto 2024-08-14 02: [facility] 0.3 % (missing) Neutrophils Absolute Auto 2024-08-14 02: [facility] 1 2700 /ul (missing) Red Cell Distribution Width 2024-08-14 02:01 [facility] 13.0 % (missing) White Blood Cell Count 2024-08-14 02:01 [facility] 13.6 x10 3/ul (missing) Hemoglobin 2024-08-14 02:01 [facility] 13.7 g/dl (missing) Monocytes Percent Auto 2024-08-14 02:01 [facility] 2.7 % (missing) Platelet Count 2024-08-14 02:01 [facility] 282 x1 0 3/ul (missing) Mean Corpuscular Hemoglobin 2024-08-14 02:01 [facility] 29.7 pg (missing) Lymphocytes Percent Auto 2024-08-14 02:01 [facility] 3. 7 % (missing) Mean Corpuscular HGB Conc 2024-08-14 02:01 [facility] 3 5.4 % (missing) Hematocrit 2024-08-14 02:01 [facility] 38.7 % (missing) Red Blood Cell Count 2024-08-14 02:01 [facility] 4.61 x10 6/ul (missing) Monocytes Absolute Auto 2024-08-14 02:01 [facility] 400 /ul (missing) Lymphocytes Absolute Auto 2024-08-14 02:01 [facility] 5 00 /ul (missing) Mean Corpuscular Volume 2024-08-14 02:01 [facility] 83. 9 fl (missing) Neutrophils Percent Auto 2024-08-14 02:01 [facility] 93 .3 % (missing) Result panel 3 UR Morphine/Opiate cutoff 300 2024-08-14 02:58 [facility] Negative (missing) (missing) Urine Amphetamines 2024-08-14 02:58 [facility] Negative (missing) (missing) Urine Barbiturates 2024-08-14 02:58 [facility] Negative (missing) (missing) Urine Benzodiazepines 2024-08-14 02:58 [facility] Negative (missing) (missing) Urine Cocaine 2024-08-14 02:58 [facility] Negative (missing) (missing) Urine MDMA 2024-08-14 02:58 [facility] Negative (missing) (missing) Urine Methadone 2024-08-14 02:58 [facility] Negative (missing) (missing) Urine Methamphetamines 2024-08-14 02:58 [facility] Negative (missing) (missing) Urine Oxycodone 2024-08-14 02:58 [facility] Negative (missing) (missing) Urine Phencyclidine 2024-08-14 02:58 [facility] Negative (missing) (missing) Urine Tricyclic Antidepressant 2024-08-14 02:58 [facility] Negative (missing) (missing) Ur Creatinine 2024-08-14 02:58 [facility] Normal (missing) (missing) Ur Specific [place] 2024-08-14 02:58 [facility] Normal (missing) (missing) Urine pH 2024-08-14 02:58 [facility] Normal (missing) (missing) Urine Tetrahydrocannabinol 2024-08-14 02:58 [facility] Positive (missing) (missing) Result panel 4 Estimated Glomerular Filt Rate 2024-08-14 02:59 [facility] > 60 ml/min Reported eGFR is based the CKD-EPI 2020 equation that does not use a race coefficient. An eGFR below 60 mL/min/1.73m2 suggests that some kidney damage has occurred, and indicative of chronic kidney disease if persisting greater than 3 months. An eGFR less than 15 is indicative of kidney failure. Creatinine 2024-08-14 02:59 [facility] 0.73 mg/dl (missing) Bilirubin Total 2024-08-14 02:59 [facility] 0.9 m g/dl (missing) Albumin Globulin Ratio 2024-08-14 02:59 [facility] 1.3 (missing) (missing ) Blood Urea Nitrogen 2024-08-14 02:59 [facility] 10 mg/dl (missing ) Calcium 2024-08-14 02:59 [facility] 10.5 mg/dl (missing) Chloride 2024-08-14 02:59 [facility] 105 mmol/l (missing) BUN Creatinine Ratio 2024-08-14 02:59 [facility] 13.7 (missing) (missing ) Sodium 2024-08-14 02:59 [facility] 138 mmol/l (missing) Carbon Dioxide 2024-08-14 02:59 [facility] 16 mm ol/l (missing) Glucose 2024-08-14 02:59 [facility] 160 mg/dl Social History date description facility
[2024-08-16] MEDS: SODIUM CHLORIDE 0.9% 1,000 ML IV STA (14:18)
[2024-08-16 14:23] LABS: BASOPHILS % (AUTO) 0.1 %; HGB - HEMOGLOBIN 11.8 g/dL (12.0-16.0); LYMPHOCYTES # (AUTO) 1.3 10^3/uL (1.5-3.5); LYMPHOCYTES % (AUTO) 12.5 %; MEAN CORPUSCULAR HEMOGLOBIN 29.9 pg (27.0-31.0); MEAN CORPUSCULAR HGB CONC 34.7 g/dL (32.0-36.0); MEAN CORPUSCULAR VOLUME 86.1 fL (81.0-99.0); MEAN PLATELET VOLUME 10.3 fL (7.9-10.8); MONOCYTES # (AUTO) 0.7 10^3/uL (0.0-1.0); NEUTROPHILS # (AUTO) 8.1 10^3/uL (1.5-6.6); NEUTROPHILS % (AUTO) 80.1 %; PLT - PLATELET COUNT 261 10^3/uL (130-450); RED BLOOD COUNT 3.95 10^6/uL (4.20-5.40); RED CELL DISTRIBUTION WIDTH 11.9 % (12.0-15.0); WHITE BLOOD COUNT 10.1 x10^3/uL (4.8-10.8)
[2024-08-16 14:38] LABS: ALBUMIN 4.1 g/dL (3.2-5.5); ALBUMIN/GLOBULIN RATIO 1.5 (1.0-2.2); BILIRUBIN,TOTAL 1.1 mg/dL (0.2-1.0); CALCIUM 9.2 mg/dL (8.5-10.3); CREATININE 0.6 mg/dL (0.6-1.3); MAGNESIUM 1.8 mg/dL (1.7-2.3); POTASSIUM 3.4 mmol/L (3.5-4.5); TOTAL PROTEIN 6.8 g/dL (6.4-8.9)
[2024-08-16] MEDS: POTASSIUM CHLOR 10 MEQ/100 ML 10 MEQ/100 ML BAG IV STA (14:51)
[2024-08-16 15:31] LABS: BILIRUBIN,URINE NEGATIVE (NEGATIVE); GLUCOSE, URINE (UA) NEGATIVE (NEGATIVE); KETONES,URINE (UA) 15 mg/dL (NEGATIVE); LEUKOCYTE ESTERASE, URINE TRACE (NEGATIVE); NITRITE,URINE NEGATIVE (NEGATIVE); OCCULT BLOOD,URINE NEGATIVE (NEGATIVE); PH,URINE 7.5 PH (5.0-7.5); PROTEIN,URINE NEGATIVE (NEGATIVE); UROBILINOGEN,URINE 2 E.U./dL (NORMAL)
[2024-08-16 15:32] LABS: CLARITY,URINE HAZY (CLEAR)
[2024-08-16] MEDS: diphenhydrAMINE INJ 50 MG/ML VIAL IVP STA ×2 (15:39→19:13)
[2024-08-16 15:42] LABS: AMPHETAMINE SCREEN,URINE NEGATIVE (NEGATIVE); BACTERIA,URINE Rare /HPF (None Seen); BARBITURATE SCREEN,UR NEGATIVE (NEGATIVE); BENZODIAZEPINES SCREEN, URINE NEGATIVE (NEGATIVE); BUPRENORPHINE SCREEN, URINE NEGATIVE (NEGATIVE); COCAINE SCREEN URINE NEGATIVE (NEGATIVE); METHADONE SCREEN, URINE NEGATIVE (NEGATIVE); METHAMPHETAMINES SCREEN, URINE NEGATIVE (NEGATIVE); MUCUS,URINE Moderate Strands; OPIATE SCREEN, URINE NEGATIVE (NEGATIVE); OXYCODONE SCREEN, URINE NEGATIVE (NEGATIVE); RBC,URINE 0-5 /HPF (0-5); SQUAMOUS EPITHELIAL CELL,UR MANY Squamous (<= Few); THC CANNABINOID SCREEN, URINE POSITIVE (NEGATIVE); TRICYCLIC ANTIDEPRESSANT,URINE NEGATIVE (NEGATIVE); WBC,URINE 0-3 /HPF (0-5)
[2024-08-16 16:24] LABS: ALBUMIN/GLOBULIN RATIO 1.6 (1.0-2.2); BILIRUBIN,TOTAL 1.1 mg/dL (0.2-1.0); CALCIUM 8.7 mg/dL (8.5-10.3); CREATININE 0.6 mg/dL (0.6-1.3); POTASSIUM 3.5 mmol/L (3.5-4.5); TOTAL PROTEIN 6.5 g/dL (6.4-8.9)
[2024-08-16] MEDS: CAPSAICIN 0.025% CREAM 60 GM TUBE TOP STA (16:37)
[2024-08-16] MEDS: THIAMINE INJ 100 MG, MAGNESIUM SULFATE 2 GM, MULTIVITAMIN 10 ML, FOLIC ACID INJ 1 MG in... IV STA ×2 (16:57→17:11)
[2024-08-16] MEDS: ONDANSETRON 4 MG/2 ML VIAL IVP STA ×2 (16:57→19:14)
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
[2024-08-16] MEDS: PYRIDOXINE 100 MG TABLET PO SCH (20:03)
[2024-08-16] MEDS: FAMOTIDINE 20 MG/2 ML VIAL IVP SCH (20:03)
[2024-08-16] MEDS: METOCLOPRAMIDE 10 MG/2 ML VIAL IVP PRN (20:11)
[2024-08-16 20:23] LABS: CREATININE,URINE 72.4 mg/dL; PROTEIN/CREATININE RATIO,URINE 0.1 (<=0.2)
[2024-08-16] MEDS ORDERED: CAPSAICIN 0.025% CREAM 60 GM TUBE TOP SCH (21:00)
[2024-08-16 21:04] VITALS: BP 162/96; TEMP 99; O2SAT 97
[2024-08-16] MEDS: LACTATED RINGERS 1,000 ML IV SCH (22:28)
[2024-08-17] MEDS: diphenhydrAMINE INJ 50 MG/ML VIAL IVP SCH (00:21)
[2024-08-17] MEDS ORDERED: ONDANSETRON 4 MG/2 ML VIAL IVP SCH (03:00)
--- NOTE | 2024-08-17 07:33 | Discharge Summary ---
"Discharge Summary Admit Date: 08/16/24 Discharge Date: 08/17/24 Discharge Facility Name: [facility] DIAGNOSES Admission Diagnoses: Hyperemesis (gravidarum and related to cannibis use), at 12 wks Discharge Diagnoses with Status of Each Condition: Same, unresolved HPI History of Present Illness: Patient is a 24 yo A2 at approx 12 weeks gestation, who presented again to the [facility] ER today. She was also seen in the ER yesterday then left AMA just after decision made for admission. She continues to struggle with nausea and vomiting and states she is amenable to staying for admission now. She is well-known to our ER with several prior presentations for cannabis- related hyperemesis. However, with now early , hyperemesis may be exacerbated by gestation. Last cannibis use was 24 hrs ago. She reports she is taking vit B6 and Zofran for her nausea. She can't remember the last time she was able to eat and any attempts at PO fluid have resulted in vomiting. She failed PO challenge while in the ER today.. Her other complaint is some epigastric discomfort, and she has been having increased restlessness with need to consistently move/pace. She denies fever, chills, vaginal bleeding, cramping, or change in bowel or bladder habits. She recalls having hyperemesis with her other but cannot recall how it was managed. She states she has seen the water engineer at [facility], and she was recently seen at [facility] ER and admitted for observation and mgmt of HG. However, she left AMA for unclear reasons. Previous ER course yesterday: patient given IV hydration, Zofran x 2 doses, Haldol 5 mg, Benadryl 50 mg, K 40 mEq, and mag sulfate 2 gm. Today, she was given IV hydration (NS), Zofran, IV benadryl, capsaicin topically, potassium replacement, and was started on a banana bag with potassium. OB Hx: ; x 1; EAB x 2 CONSULTS | PROCEDURES Consultations: Nutrition, SW consulted but never had opportunity to see patient Procedures: None HOSPITAL COURSE Hospital Course: Patient admitted to floor. Continued administration of banana bag that was started in ER. Continued on Zofran + Benadryl IV. Pt showered multiple times for relief. Capsaicin cream discontinued due to skin redness. Patient left AMA approx 7 hrs after admission because we weren't doing anything different for her. Pt not seen or examined by this physician before leaving AMA. ALLERGIES Allergies Allergy/AdvReac Type Severity Reaction Status Date / Time No Known Drug Allergies Allergy Verified 08/16/24 05:47 MEDICATIONS Ambulatory Orders Medication Instructions Recorded Confirmed ondansetron 4 mg disintegrating 4 mg translingual Q6H PRN Nausea / 04/19/24 08/16/24 tablet Vomiting #10 tabs pyridoxine (vitamin B6) 50 mg 50 mg PO DAILY 08/15/24 08/16/24 tablet LABS 08/16/24 14:20 08/16/24 16:05 QUALITY (Female Hip Fx Only) Was patient sent home on osteoporosis medication?: No FOLLOW UP Follow Up: [facility] TIME SPENT Time Spent in Discharge (Minutes): 5 Discharge Plan Discharge Patient Disposition: 07 Against Medical Advice Condition: Fair Prescriptions: No Action ondansetron 4 mg tablet,disintegrating 4 mg translingual Q6H PRN (Reason: Nausea / Vomiting) Qty: 10 0RF pyridoxine (vitamin B6) 50 mg tablet 50 mg PO DAILY Print Language: [place] Stand Alone Forms: PCP List"
== END 2024-08-17 02:00 | disposition left against medical advice (07) ==
LOC: MS2 13:41 → ED 13:41 → MS2 18:33
PROVIDERS: ADMIT Obstetrics & Gynecology; ATTEND Obstetrics & Gynecology

== ENCOUNTER 2024-12-31 19:36 | Observation (INO) ==
[2024-12-31 20:33] LABS: ALT ALANINE AMINOTRANSFERASE 5.0 IU/L (10-60); AST ASPARTATE AMINOTRANSFERASE 10.0 IU/L (10-42); BUN - BLOOD UREA NITROGEN 6.0 mg/dL (6-20); CARBON DIOXIDE - CO2 25.0 mmol/L (21-32); CREATININE 0.6 mg/dL (0.6-1.3); GFR - MDRD 123.0 (>89)
[2024-12-31 20:36] LABS: HCT - HEMATOCRIT 33.4 % (37.0-47.0); HGB - HEMOGLOBIN 11.5 g/dL (12.0-16.0); MEAN PLATELET VOLUME 10.1 fL (7.9-10.8); NRBC ABSOLUTE COUNT (AUTO) 0.00 x10^3/uL; NUCLEATED RED BLOOD CELLS AUTO 0.0 /100WBC; PLT - PLATELET COUNT 324 10^3/uL (130-450); RED CELL DISTRIBUTION WIDTH 13.7 % (12.0-15.0)
[2024-12-31] MEDS ORDERED: LACTATED RINGERS 1,000 ML IV SCH (21:00)
[2024-12-31 21:28] LABS: TOTAL PROTEIN,URINE TIMED 51.0 mg/dL
[2024-12-31] MEDS: ONDANSETRON 4 MG/2 ML VIAL IVP PRN (22:03)
[2024-12-31] MEDS: FAMOTIDINE 20 MG/2 ML VIAL IVP SCH (22:03)
[2024-12-31 22:15] LABS: GLUCOSE, URINE (UA) NEGATIVE (NEGATIVE); KETONES,URINE (UA) >=80 mg/dL (NEGATIVE); OCCULT BLOOD,URINE NEGATIVE (NEGATIVE)
[2024-12-31 22:16] LABS: CASTS, URINE 0-2 WBC Casts /LPF; EPITHELIAL CELLS,UR FEW Transitional /HPF (<= Few); SQUAMOUS EPITHELIAL CELL,UR MANY Squamous (<= Few)
[2024-12-31] MEDS ORDERED: ACETAMINOPHEN 500 MG TABLET PO PRN (22:43)
[2024-12-31] MEDS ORDERED: SODIUM CHLORIDE FLUSH 0.9% 10 ML SYRINGE IVP PRN (22:43)
[2024-12-31] MEDS ORDERED: SCOPOLAMINE PATCH TOP PRN (22:49)
[2024-12-31] MEDS: MULTIVITAMIN 10 ML, THIAMINE INJ 100 MG, POTASSIUM CHLORIDE INJ 20 MEQ, FOLIC ACID INJ ... IV SCH (22:56)
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
[2024-12-31] MEDS ORDERED: GLYCERIN PEDIATRIC SUPP PR PRN (23:31)
[2024-12-31] MEDS ORDERED: MAGNESIUM HYDROXIDE 2,400 MG/30 ML UDC PO PRN ×2 (23:31→23:37)
[2025-01-01] MEDS: METOCLOPRAMIDE 10 MG/2 ML VIAL IVP PRN (00:16)
[2025-01-01] MEDS: LACTATED RINGERS 1,000 ML IV SCH ×2 (03:04→03:05)
[2025-01-01] MEDS: SODIUM CHLORIDE FLUSH 0.9% 10 ML SYRINGE IVP SCH (04:27)
[2025-01-01 08:45] VITALS: TEMP 98.4
[2025-01-01] MEDS ORDERED: CALCIUM CARBONATE CHEW 500 MG TABLET PO PRN (09:07)
[2025-01-01] MEDS ORDERED: NIFEdipine ER 30 MG TABLET PO SCH (09:10)
[2025-01-01 10:06] LABS: ALT ALANINE AMINOTRANSFERASE 4.0 IU/L (10-60); AST ASPARTATE AMINOTRANSFERASE 15.0 IU/L (10-42); BUN - BLOOD UREA NITROGEN 6.0 mg/dL (6-20); CARBON DIOXIDE - CO2 19.0 mmol/L (21-32); CREATININE 0.5 mg/dL (0.6-1.3); GFR - MDRD 152.0 (>89)
--- NOTE | 2025-01-01 11:37 | PHARMACY PROGRESS NOTE ---
Best Possible Medication History Admit Date and Time: 12/31/24 [id number] Home Medications Medication Instructions Recorded Confirmed Type scopolamine base 1 mg over 3 days 1 patch transdermal Q3D PRN nausea 11/01/24 01/01/25 Rx transdermal patch #10 ea metoclopramide HCl 10 mg tablet 10 mg PO Q8H PRN nause a and 11/23/24 01/01/25 History vomiting sumatriptan succinate 50 mg tablet 50 mg PO ONCE PRN m igraine headache 12/02/24 01/01/25 History omeprazole 20 mg capsule,delayed 20 mg PO BID PRN hear tburn #60 caps 12/14/24 01/01/25 Rx release ondansetron 4 mg disintegrating 4 mg PO Q8H PRN nausea and 12/14/24 01/01/25 Rx tablet vomiting #60 tabs vits no.126-ferrous fum 1 tab PO DAILY 01/01/25 History 28 mg iron-folic acid 800 mcg tablet (Classic ) glycerin (child) 1 supp MI DAILY PRN Constipa tion 01/01/25 Rx #12 ea nifedipine 30 mg tablet,extended 30 mg PO DAILY #20 ta bs 01/01/25 Rx release 24 hr potassium chloride 10 mEq 20 meq (2 x 10 mEq) PO DAILY 3 01/01/25 Rx capsule,extended release days #6 caps Processed by: Pharmacy (MACHINE INSPECTORSAVAGE) Medications reviewed in ED?: No Medication History completed: Yes Patient Interview: Completed Secondary Source(s): Physician records and Insurance records [facility] Statement: As the person ultimately responsible for medication therapy, providers are able to order a medication from an existing home medication list in [facility] via the "Reconcile Routine" prior to Confirmation of that medication by nursing support worker. Such practice is discouraged except when the physician, in their clinical judgment, deems that a medical need exists for a medication without regard to previous use.
[2025-01-01 11:45] VITALS: O2SAT 97
[2025-01-01 11:53] VITALS: BP 153/93
--- NOTE | 2025-01-01 13:06 | Discharge Summary ---
Discharge Summary Admit Date: 12/31/24 Discharge Date: 01/01/25 Discharging Provider: Dr. Judith Pozo Primary Care Provider: Dr. Joselin De La Cruz Code Status: Attempt Resuscitation Discharge Facility [facility]: [facility] DIAGNOSES Admission Diagnoses: 1. Hyperemesis gravidarum, third trimester 2. Cyclic vomiting syndrome 3. Hypokalemia 4. Chronic HTN complicating , third trimester 5. Constipation in , third trimester 6. at 31 wks gestation Discharge Diagnoses with Status of Each Condition: 1. Hyperemesis gravidarum, third trimester - some improvement with IV hydration 2. Cyclic vomiting syndrome - unchanged 3. Hypokalemia - unchanged 4. Chronic HTN complicating , third trimester - unchanged 5. Constipation in , third trimester - unchanged 6. at 32 wks gestation HPI History of Present Illness: Admission: Edith is a 24 yo at 31w6d who is admitted for management of intractable nausea/vomiting of . She reports persistent symptoms that have been ongoing, with the patient noting she "hadn't been doing well" since her clinic visit yesterday. She reports inability to tolerate oral medications, stating "I'm throwing it up so I can't take" it. The patient has been using a scopolamine patch for 2-3 days and took a suppository at 5:30. She received Zofran in the ambulance but reports no improvement in symptoms, stating "No, I just want to get in the shower" when asked if she felt better after receiving fluids. Associated symptoms include significant anxiety, with the patient reporting feeling "really anxious" and expressing that she "doesn't like it when I feel like this." She describes feeling cold and has identified taking a shower as her primary coping mechanism for anxiety relief. The patient also reports generalized body soreness, with stomach pain attributed to lying on her stomach during vomiting episodes and back pain from positioning. She denies contractions, LOF, vaginal bleeding, dysuria. She is concerned that she has felt less movement today. Denies blood or coffee ground emesis. Reports last Marijuana use was around the time of her last admission, in an attempt to help with sleep, which she reports was ineffective. She denies use of any other substances. She reports that previous treatments including IV hydroxyzine and Haldol have been ineffective for both anxiety and nausea symptoms. CONSULTS | PROCEDURES Consultations: Social Work Procedures: - IV hydration - consult received for: resources and connections with local therapists. "Spoke with pt at bedside and provided list of community mental health options on [facility] and a brochure for [facility]. Pt agreeable for referral to [facility] and [facility]. Referrals sent." HOSPITAL COURSE Hospital Course: Edith was admitted to [facility] to receive IV hydration, IV zofran, IV benadryl, and potassium replacement. Sx were best managed with serial showering by the patient. She did report constipation (which typically makes her N/V worse) with last stool several days ago. She has been trying mgmt with home Miralax and OTC Milk of Mag. Miralax has been ineffective, and MOM resulted in abdominal cramping. She did not have a stool during her hospitalization. At nearly 12 hrs after admission to Observation, she requested discharge to home, feeling that her hospital care was not adding to her outpatient mgmt. Patient amenable to trying scheduled outpatient hydration at the ambulatory infusion center to help decrease need for ER visits and admission. Orders placed for twice weekly hydration (LR x 2 L) starting 01/04, and pt encouraged to call [facility] to schedule appt for 01/04. Hypokalemia unchanged since admission, and discharging with 3 days of 20 mEq PO KCl for patient to start once able to take PO. For constipation, ordered trial of glycerin supp. Cont with Miralax. During her ER/hospital stay, BP's were mild to moderately elevated. She had no severe-range BP's. PreE labs were obtained and normal/neg, including urine PCR (0.2). Onset of HTN and lab results are c/w chronic HTN without and si/sx of preE or severe features. Plan was to start oral hypertensive once N/V improved. However, she was not able to tolerate PO meds prior to her desired discharge. Of note, her last BP prior to discharge was obtained while patient was pacing the room, anxious and nauseated. She declined sitting to obtain a repeat. Ordered/discussed trial of Procardia XL 30 mg daily to start once able to tolerate PO. Pt verbalized agreement with this. course is also notable for marijuana use and possible cannabinoid- associated N/V. She reports last use at least 1-2 wks ago and decline urine drug screen during the hospital stay. Social Work consult was obtained (due to her anxiety), and outpatient resources provided. status reassured with reactive NST prior to discharge. ALLERGIES Allergies Allergy/AdvReac Type Severity Reaction Status Date / Time No Known Drug Allergies Allergy Verified 01/01/25 11:18 MEDICATIONS Ambulatory Orders Medication Instructions Recorded Confirmed scopolamine base 1 mg over 3 days 1 patch transdermal Q3D PRN nausea 11/01/24 01/01/25 transdermal patch #10 ea metoclopramide HCl 10 mg tablet 10 mg PO Q8H PRN nause a and 11/23/24 01/01/25 vomiting sumatriptan succinate 50 mg tablet 50 mg PO ONCE PRN m igraine headache 12/02/24 01/01/25 omeprazole 20 mg capsule,delayed 20 mg PO BID PRN hear tburn #60 caps 12/14/24 01/01/25 release ondansetron 4 mg disintegrating 4 mg PO Q8H PRN nausea and 12/14/24 01/01/25 tablet vomiting #60 tabs vits no.126-ferrous fum 1 tab PO DAILY 01/01/25 28 mg iron-folic acid 800 mcg tablet (Classic ) glycerin (child) 1 supp IN DAILY PRN Constipa tion 01/01/25 #12 ea nifedipine 30 mg tablet,extended 30 mg PO DAILY #20 ta bs 01/01/25 release 24 hr potassium chloride 10 mEq 20 meq (2 x 10 mEq) PO DAILY 3 01/01/25 capsule,extended release days #6 caps PHYSICAL EXAM AT DISCHARGE Vital Signs: Vital Signs x48h Temp Pulse Resp BP Pulse Ox 01/01/25 11:48 153/93 H 01/01/25 11:44 36.9 C 103 H 18 150/100 H 97 01/01/25 08:44 36.9 C 76 18 138/89 H 98 01/01/25 06:12 36.8 C 88 18 149/82 H 98 General Appearance: positive Alert, Mild distress (Anxious-appearing and pacing in room (this is patient's baseline appearance during her admissions)) and Anxious Respiratory: positive No respiratory distress Cardiovascular: positive Regular rate & rhythm Abdomen: positive Non-tender (Gravid) Skin: positive Color nml Extremities: positive Full ROM and Nml appearance Neurologic/Psychiatric: positive Oriented x3 LABS 12/31/24 20:17 01/01/25 09:26 QUALITY (Female Hip Fx Only) Was patient sent home on osteoporosis medication?: No FOLLOW UP Follow Up: One week for OB visit and BP check TIME SPENT Time Spent in Discharge (Minutes): 30 Discharge Plan Discharge Patient Disposition: Home, Self Care Condition: Stable Medically Cleared Date:: 01/01/25 Prescriptions: New nifedipine 30 mg Tablet Extended Release 24hr 30 mg PO DAILY Qty: 20 0RF glycerin (child) Suppository 1 supp IN DAILY PRN (Reason: Constipation) Qty: 12 0RF potassium chloride 10 mEq capsule, extended release 20 meq PO DAILY 3 Days Qty: 6 2RF Continued scopolamine base 1 mg over 3 days patch 3 day 1 patch transdermal Q3D PRN (Reason: nausea) Qty: 10 0RF metoclopramide HCl 10 mg tablet 10 mg PO Q8H PRN (Reason: nausea and vomiting) Patient Comments: TAKE 1 TABLET BY MOUTH EVERY 8 HOURS NEEDED FOR NAUSEA AND VOMITING ADMINISTER 30 MINUTES BEFORE MEALS sumatriptan succinate 50 mg tablet 50 mg PO ONCE PRN (Reason: migraine headache) Rx Instructions: 1 tablet by mouth once as needed (for vomiting) for up to 9 doses. May repeat after 2 hours. Classic 28 mg iron- 800 mcg tablet 1 tab PO DAILY ondansetron 4 mg tablet,disintegrating 4 mg PO Q8H PRN (Reason: nausea and vomiting) Qty: 60 4RF omeprazole 20 mg capsule,delayed release(DR/EC) 20 mg PO BID PRN (Reason: heartburn) Qty: 60 8RF Diet: Regular Print Language: Telugu Patient Instructions: Care Vitals documented within 30 minutes of discharge?: Yes
[2025-01-04] MEDS ORDERED: SODIUM CHLORIDE 0.9% IV ONE (11:05)
[2025-01-04] MEDS ORDERED: MAGNESIUM SULFATE IV ONE (11:05)
[2025-01-04] MEDS ORDERED: POTASSIUM CHLORIDE IV ONE (11:05)
== END 2025-01-01 11:52 | disposition home or self-care (01) ==
LOC: FBP 19:36 → WFO 19:36 → FBP 19:38
PROVIDERS: ADMIT Obstetrics & Gynecology; ATTEND Obstetrics & Gynecology
DX: F12.90 Cannabis use, unspecified, uncomplicated; O21.2 Late vomiting of pregnancy; K59.00 Constipation, unspecified; O99.323 Drug use complicating pregnancy, third trimester; O99.343 Other mental disorders complicating pregnancy, third trimester; F41.9 Anxiety disorder, unspecified; O10.913 Unspecified pre-existing hypertension complicating pregnancy, third trimester; F31.9 Bipolar disorder, unspecified; O99.283 Endocrine, nutritional and metabolic diseases complicating pregnancy, third trimester; E87.6 Hypokalemia; O99.613 Diseases of the digestive system complicating pregnancy, third trimester; Z3A.31 31 weeks gestation of pregnancy

== ENCOUNTER 2025-01-02 07:27 | Observation (INO) ==
[2025-01-02 07:43] VITALS: TEMP 98.4
[2025-01-02] MEDS: LACTATED RINGERS 1,000 ML IV ONE (08:15)
--- NOTE | 2025-01-02 08:48 | PHARMACY PROGRESS NOTE ---
Best Possible Medication History Admit Date and Time: Home Medications Medication Instructions Recorded Confirmed Type scopolamine base 1 mg over 3 days 1 patch transdermal Q3D PRN nausea 11/01/24 01/02/25 Rx transdermal patch #10 ea metoclopramide HCl 10 mg tablet 10 mg PO Q8H PRN nause a and 11/23/24 01/02/25 History vomiting sumatriptan succinate 50 mg tablet 50 mg PO ONCE PRN m igraine headache 12/02/24 01/02/25 History omeprazole 20 mg capsule,delayed 20 mg PO BID PRN hear tburn #60 caps 12/14/24 01/02/25 Rx release ondansetron 4 mg disintegrating 4 mg PO Q8H PRN nausea and 12/14/24 01/02/25 Rx tablet vomiting #60 tabs vits no.126-ferrous fum 1 tab PO DAILY 01/02/25 History 28 mg iron-folic acid 800 mcg tablet (Classic ) glycerin (child) 1 supp OK DAILY PRN Constipa tion 01/01/25 01/02/25 Rx #12 ea nifedipine 30 mg tablet,extended 30 mg PO DAILY #20 ta bs 01/01/25 01/02/25 Rx release 24 hr potassium chloride 10 mEq 20 meq (2 x 10 mEq) PO DAILY 3 01/01/25 01/02/25 Rx capsule,extended release days #6 caps Processed by: Pharmacy (Medication reconciliation completed on yesterday's admission by Poultry Husbandry TeacherElvis) Medications reviewed in ED?: No Medication History completed: Yes Patient Interview: Completed Secondary Source(s): Insurance records and Previous admit records (Med rec completed yesterday, discharged and readmitted.) [facility] Statement: As the person ultimately responsible for medication therapy, providers are able to order a medication from an existing home medication list in [facility] via the "Reconcile Routine" prior to Confirmation of that medication by computer technical support specialist. Such practice is discouraged except when the physician, in their clinical judgment, deems that a medical need exists for a medication without regard to previous use.
[2025-01-02] MEDS ORDERED: SODIUM CHLORIDE FLUSH 0.9% 10 ML SYRINGE IVP PRN (09:03)
[2025-01-02] MEDS ORDERED: ACETAMINOPHEN 500 MG TABLET PO PRN (09:03)
[2025-01-02] MEDS: GLYCERIN ADULT SUPP PR ONE (09:32)
[2025-01-02] MEDS: ONDANSETRON 4 MG/2 ML VIAL IVP PRN ×2 (09:32→14:47)
[2025-01-02] MEDS: FAMOTIDINE 20 MG/2 ML VIAL IVP SCH (09:32)
[2025-01-02] MEDS: DROPERIDOL 5 MG/2 ML VIAL IVP STA (09:32)
[2025-01-02] MEDS: LACTATED RINGERS 1,000 ML IV SCH (09:46)
[2025-01-02 10:17] LABS: HCT - HEMATOCRIT 31.2 % (37.0-47.0); HGB - HEMOGLOBIN 10.8 g/dL (12.0-16.0); MEAN PLATELET VOLUME 10.6 fL (7.9-10.8); NRBC ABSOLUTE COUNT (AUTO) 0.00 x10^3/uL; NUCLEATED RED BLOOD CELLS AUTO 0.0 /100WBC; PLT - PLATELET COUNT 331 10^3/uL (130-450); RED CELL DISTRIBUTION WIDTH 13.5 % (12.0-15.0)
[2025-01-02 10:33] LABS: GLUCOSE, URINE (UA) NEGATIVE (NEGATIVE); KETONES,URINE (UA) >=80 mg/dL (NEGATIVE); OCCULT BLOOD,URINE NEGATIVE (NEGATIVE); TOTAL PROTEIN,URINE TIMED 44.0 mg/dL
[2025-01-02 10:34] LABS: ALT ALANINE AMINOTRANSFERASE 9.0 IU/L (10-60); AST ASPARTATE AMINOTRANSFERASE 14.0 IU/L (10-42); BUN - BLOOD UREA NITROGEN 6.0 mg/dL (6-20); CARBON DIOXIDE - CO2 24.0 mmol/L (21-32); CREATININE 0.5 mg/dL (0.6-1.3); GFR - MDRD 152.0 (>89)
[2025-01-02 10:52] LABS: SQUAMOUS EPITHELIAL CELL,UR RARE Squamous (<= Few)
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
[2025-01-02] MEDS: SODIUM CHLORIDE FLUSH 0.9% 10 ML SYRINGE IVP SCH (11:16)
[2025-01-02 12:08] LABS: BACTERIAL VAGINOSIS DNA POSITIVE (NEGATIVE); CANDIDA GLABRATA DNA NEGATIVE (NEGATIVE); CANDIDA GROUP DNA NEGATIVE (NEGATIVE); CANDIDA KRUSEI DNA NEGATIVE (NEGATIVE); TRICHOMONAS VAGINALIS DNA NEGATIVE (NEGATIVE)
[2025-01-02] MEDS: POTASSIUM CHLOR 10 MEQ/100 ML 10 MEQ/100 ML BAG IV SCH (12:16)
[2025-01-02] MEDS ORDERED: DROPERIDOL 5 MG/2 ML VIAL IVP PRN ×2 (13:58→14:12)
[2025-01-02] MEDS: METOCLOPRAMIDE 10 MG/2 ML VIAL IVP PRN (14:47)
--- NOTE | 2025-01-02 15:50 | Discharge Summary ---
"Discharge Summary Admit Date: 01/02/25 Discharge Date: 01/02/25 Discharging Provider: Dr. Judith Pozo Primary Care Provider: Dr. Joselin De La Cruz Code Status: Attempt Resuscitation Discharge Facility Name: [facility] DIAGNOSES Admission Diagnoses: Hyperemesis with electrolyte imbalance, hypokalemia, constipation, urinary urgency Discharge Diagnoses with Status of Each Condition: Hyperemesis with electrolyte imbalance (improved with meds and stooling), hypokalemia (IV K given), constipation (stooled x 1), urinary urgency (no change), bacterial vaginosis (new dx) HPI History of Present Illness: Edith is a 24 yo at 32w1d who is admitted to observation for management of intractable nausea/vomiting of . She was admitted the night before last for similar sx, left yesterday afternoon, and returned this morning. She was unable to sleep last night due to nausea and vomiting despite taking home doses of promethazine and zofran. She arrived by ambulance (for transportation issues) and received IV Zofran while en route. She only feels well when she's in the shower. She was able to take Nifedipine last night and kept it down for at least 2 hrs. Denies WHITTAKER, visual changes, abdominal pain, or decreased movements. + intermittent bladder discomfort and having trouble voiding (urgency without voiding). She states she mainly just voids when leaks/gushes with vomiting. Still no stool and hasn't tried glycerin supp yet (N/V worsens for her when she constipated, and last stool was several days ago). The patient also reports generalized body soreness, with stomach pain attributed to lying on her stomach during vomiting episodes and back pain from positioning. Denies blood or coffee ground emesis. Reports last Marijuana use was around the time of her last admission, in an attempt to help with sleep, which she reports was ineffective. She denies use of any other substances and declines urine drug screen. She reports that previous treatments including IV hydroxyzine and Haldol have been ineffective for both anxiety and nausea symptoms. Droperidol/benadryl has seemed to be effective with previous admissions. CONSULTS | PROCEDURES Consultations: None Procedures: NST - 135, reactive/cat 1 with no decels or ctx HOSPITAL COURSE Hospital Course: Patient admitted for observation. Labs noted K 3.0 (down from 3.2 yesterday) but were otherwise stable. VS were wnl except for mild HTN (also stable). Nausea sx were best managed with showering. She did receive a dose of droperidol 1.25 mg + benadryl IV and was able to rest for a short period. IV KCl was given x 40 mEq, and she also received doses of IV Zofran, IV Reglan, and IV hydration. Glycerin supp was administered, and she passed flatus and stool, feeling better thereafter. Following these treatments, she felt much-improved and ready for discharge. She is to continue home meds, including Nifedipine XL 30 mg (due later tonight), bowel regimen (including glycerin supp prn), antiemetics, and K supplements x 3 days. Also prescribed Metrogel x 7 days for new dx of BV. Urine culture pending at time of discharge. Will call and order antibiotics as indicated. ALLERGIES Allergies Allergy/AdvReac Type Severity Reaction Status Date / Time No Known Drug Allergies Allergy Verified 01/01/25 11:18 MEDICATIONS Ambulatory Orders Medication Instructions Recorded Confirmed scopolamine base 1 mg over 3 days 1 patch transdermal Q3D PRN nausea 11/01/24 01/02/25 transdermal patch #10 ea metoclopramide HCl 10 mg tablet 10 mg PO Q8H PRN nause a and 11/23/24 01/02/25 vomiting sumatriptan succinate 50 mg tablet 50 mg PO ONCE PRN m igraine headache 12/02/24 01/02/25 omeprazole 20 mg capsule,delayed 20 mg PO BID PRN hear tburn #60 caps 12/14/24 01/02/25 release ondansetron 4 mg disintegrating 4 mg PO Q8H PRN nausea and 12/14/24 01/02/25 tablet vomiting #60 tabs vits no.126-ferrous fum 1 tab PO DAILY 01/02/25 28 mg iron-folic acid 800 mcg tablet (Classic ) glycerin (child) 1 supp [place] DAILY PRN Constipa tion 01/01/25 01/02/25 #12 ea nifedipine 30 mg tablet,extended 30 mg PO DAILY #20 ta bs 01/01/25 01/02/25 release 24 hr potassium chloride 10 mEq 20 meq (2 x 10 mEq) PO DAILY 3 01/01/25 01/02/25 capsule,extended release days #6 caps metronidazole 1 % topical gel 1 applic topical DAILY 7 days #60 01/02/25 (Metrogel) grams PHYSICAL EXAM AT DISCHARGE Vital Signs: Vital Signs x48h Temp Pulse Resp BP 01/02/25 10:27 36.9 C 89 18 136/91 H Gen: appears anxious, pacing around room at times but calmer than previously. Chest: non labored respirations Abd: gravid, non tender. No rebound/guarding. Ext: no LE edema SVE: deferred LABS 01/02/25 09:10 01/02/25 09:10 QUALITY (Female Hip Fx Only) Was patient sent home on osteoporosis medication?: No FOLLOW UP Follow Up: F/u with next scheduled OB visit in approx 2 wks TIME SPENT Time Spent in Discharge (Minutes): 30 Discharge Plan Discharge Patient Disposition: 01 Home, Self Care Condition: Fair Medically Cleared Date:: 01/02/25 Prescriptions: New metronidazole [Metrogel] 1 % gel 1 applic topical DAILY 7 Days Qty: 60 0RF Continued scopolamine base 1 mg over 3 days patch 3 day 1 patch transdermal Q3D PRN (Reason: nausea) Qty: 10 0RF metoclopramide HCl 10 mg tablet 10 mg PO Q8H PRN (Reason: nausea and vomiting) Patient Comments: TAKE 1 TABLET BY MOUTH EVERY 8 HOURS NEEDED FOR NAUSEA AND VOMITING ADMINISTER 30 MINUTES BEFORE MEALS sumatriptan succinate 50 mg tablet 50 mg PO ONCE PRN (Reason: migraine headache) Rx Instructions: 1 tablet by mouth once as needed (for vomiting) for up to 9 doses. May repeat after 2 hours. nifedipine 30 mg Tablet Extended Release 24hr 30 mg PO DAILY Qty: 20 0RF glycerin (child) Suppository 1 supp OH DAILY PRN (Reason: Constipation) Qty: 12 0RF potassium chloride 10 mEq capsule, extended release 20 meq PO DAILY 3 Days Qty: 6 2RF Classic 28 mg iron- 800 mcg tablet 1 tab PO DAILY ondansetron 4 mg tablet,disintegrating 4 mg PO Q8H PRN (Reason: nausea and vomiting) Qty: 60 4RF omeprazole 20 mg capsule,delayed release(DR/EC) 20 mg PO BID PRN (Reason: heartburn) Qty: 60 8RF Diet: Regular Print Language: Vietnamese Patient Instructions: Bacterial Vaginosis, ED Constipation (Adult) Vitals documented within 30 minutes of discharge?: Yes"
[2025-01-02] MEDS: CALCIUM CARBONATE CHEW 500 MG TABLET PO PRN (16:03)
[2025-01-02 17:58] VITALS: BP 134/78; O2SAT 99
--- NOTE | 2025-01-04 12:43 | PROVIDER PROGRESS NOTE ---
HPI Chief Complaint: Hyperemesis Current : Current EDU 02/26/25 Gestation 32 Weeks and 1 Days Para 1 Patient is a 24 yo at 32+2 wks, who was brought to the ER via ambulance for recurrent N/V (chronic concern for patient). NST obtained while in the ER with results as noted below. BP elevated into mild to moderate range while in ER. She was started on Procardia XL 30 mg daily 2 days ago and has been taking this medication. She denied severe/persistent headache (does have intermittent WHITTAKER chronically), visual changes, or notable RUQ/epigastric pain. Patient seen and managed by ER staff, and preE labs obtained. N/V was managed with droperidol, benadryl, and IV hydration. BPs improved without medications. Vital Signs Temperature 36.9 C 01/02/25 17:55 Pulse Rate 85 01/02/25 17:55 Respiratory Rate 16 01/02/25 17:55 Blood Pressure 134/78 H 01/02/25 17:55 O2 Saturation 99 01/02/25 17:55 See more recent VS from ER visit 01/03/2025 Notable lab results: K 3.3 Phos 2.4 Mg 1.6 LFTs, lipase, and CBC normal Urine PCR 0.2 on 01/02 Urine DDS positive for cannabinoids Procedures OB Procedure Performed: NST Diagnosis/Indication for NST: Other (Nausea, vomiting) Service Date of procedure: 01/03/25 Procedure Details: Baseline 130-140's, mod variability, accels present (10x10 with at least one 15x15), rare mild variables noted (10 sec from 140 to 110) Junior: No ctx Plan Plan: 1. Hyperemesis gravidarum, third trimester 2. Cannabinoid-associated hyperemesis 3. Cycle vomiting syndrom 4. Mild dehydration with electrolyte abnormalities 5. Chronic HTN, third trimester 6. at 32 wks Patient seen and managed in ER. Retrospective review/reading of NST with above results - status overall reassuring. No evidence of preE at this time. Pt subsequently discharged from ER (See notes by Dr. Neal) with f/u in OB clinic as previously discussed or sooner prn.
== END 2025-01-02 17:44 | disposition home or self-care (01) ==
LOC: WFO 07:27 → FBP 07:27
PROVIDERS: ADMIT Obstetrics & Gynecology; ATTEND Obstetrics & Gynecology
DX: F41.9 Anxiety disorder, unspecified; R39.15 Urgency of urination; Z3A.32 32 weeks gestation of pregnancy; O99.323 Drug use complicating pregnancy, third trimester; O10.913 Unspecified pre-existing hypertension complicating pregnancy, third trimester; O99.891 Other specified diseases and conditions complicating pregnancy; F12.90 Cannabis use, unspecified, uncomplicated; E87.6 Hypokalemia; O99.343 Other mental disorders complicating pregnancy, third trimester; O99.613 Diseases of the digestive system complicating pregnancy, third trimester; O99.283 Endocrine, nutritional and metabolic diseases complicating pregnancy, third trimester; O21.2 Late vomiting of pregnancy; K59.01 Slow transit constipation; O23.593 Infection of other part of genital tract in pregnancy, third trimester

== ENCOUNTER 2025-02-19 08:17 | Inpatient (IN) ==
[2025-02-19] MEDS ORDERED: hydrALAZINE INJ 20 MG/ML VIAL IVP PRN (09:14)
[2025-02-19] MEDS ORDERED: LABETALOL 20 MG/4 ML SYRINGE IVP PRN ×3 (09:14)
[2025-02-19] MEDS ORDERED: OXYTOCIN/SODIUM CHLORIDE 500 ML IV PRN (09:14)
[2025-02-19] MEDS ORDERED: TRANEXAMIC ACID IN NACL 1,000 MG/100 ML BAG IV PRN (09:14)
[2025-02-19] MEDS ORDERED: DOCUSATE SODIUM 100 MG CAPSULE PO PRN (09:14)
[2025-02-19] MEDS ORDERED: OXYTOCIN 10 UNIT/ML VIAL IM PRN (09:14)
[2025-02-19] MEDS ORDERED: SODIUM CHLORIDE FLUSH 0.9% 10 ML SYRINGE IVP PRN (09:14)
[2025-02-19] MEDS ORDERED: METHYLERGONOVINE 0.2 MG/ML VIAL IM PRN (09:14)
[2025-02-19] MEDS ORDERED: TERBUTALINE 1 MG/ML VIAL SUBQ PRN (09:14)
[2025-02-19] MEDS ORDERED: LACTATED RINGERS 1,000 ML IV PRN (09:14)
[2025-02-19] MEDS ORDERED: ACETAMINOPHEN 500 MG TABLET PO PRN (09:14)
[2025-02-19] MEDS ORDERED: CARBOPROST TROMETHAMINE 250 MCG/ML VIAL IM PRN (09:14)
[2025-02-19] MEDS ORDERED: fentaNYL 100 MCG/2 ML VIAL IVP PRN (09:14)
[2025-02-19] MEDS ORDERED: ONDANSETRON 4 MG/2 ML VIAL IVP PRN (09:20)
[2025-02-19] MEDS ORDERED: PROCHLORPERAZINE 10 MG/2 ML VIAL IVP PRN (09:20)
[2025-02-19 09:31] LABS: HCT - HEMATOCRIT 33.4 % (37.0-47.0); HGB - HEMOGLOBIN 11.1 g/dL (12.0-16.0); MEAN PLATELET VOLUME 11.6 fL (7.9-10.8); NRBC ABSOLUTE COUNT (AUTO) 0.00 x10^3/uL; NUCLEATED RED BLOOD CELLS AUTO 0.0 /100WBC; PLT - PLATELET COUNT 325 10^3/uL (130-450); RED CELL DISTRIBUTION WIDTH 13.8 % (12.0-15.0)
[2025-02-19 09:39] LABS: ALT ALANINE AMINOTRANSFERASE 9.0 IU/L (10-60); AST ASPARTATE AMINOTRANSFERASE 13.0 IU/L (10-42); BUN - BLOOD UREA NITROGEN 9.0 mg/dL (6-20); CARBON DIOXIDE - CO2 23.0 mmol/L (21-32); CREATININE 0.6 mg/dL (0.6-1.3); GFR - MDRD 123.0 (>89)
[2025-02-19] MEDS: CALCIUM CARBONATE CHEW 500 MG TABLET PO PRN (09:50)
[2025-02-19] MEDS: FAMOTIDINE 20 MG/2 ML VIAL IVP SCH (09:51)
[2025-02-19 09:52] LABS: SLIDE REVIEW? Indicated
[2025-02-19 09:53] LABS: PLATELET ESTIMATE, MANUAL NORMAL (130-450,000) (NORMAL)
[2025-02-19 09:54] LABS: RBC MORPHOLOGY (MULTIPLE) NORMAL APPEARANCE (NORMAL)
[2025-02-19] MEDS: ONDANSETRON ODT 4 MG TABLET PO PRN (10:00)
[2025-02-19] MEDS ORDERED: SODIUM CHLORIDE FLUSH 0.9% 10 ML SYRINGE IVP SCH (10:00)
[2025-02-19] MEDS: LACTATED RINGERS 1,000 ML IV ONE (10:12)
--- OUTSIDE RECORDS SUMMARY | 2025-02-19 10:21 | EXTERNAL MEDICAL SUMMARY RPT | Continuity of Care Document ---
Author Organization [place] Address [address] [facility] [address] [place] [id number] Phone Problems date description facility 2024-11-23 16:56 Tachycardia, unspecified [facility] 2024-11-23 17:18 Tachycardia, unspecified [facility] 2024-11-23 18:43 Tachycardia, unspecified [facility] 2024-11-25 12:50 [facility] 12:50 [facility] 2024-11-25 12:50 Other chest [facility] 2024-12-05 09:06 Dehydration [employer] [facility] 2024-12-05 09:06 [facility]alemia [facility] 2024-12-05 09:06 Unspecified maternal hypertensi on, third trimester [facility] 2024-12-05 09:06 Mild hyperemesis gravidarum i [employer] 2024-12-05 10:05 Dehydration [employer] [facility] 2024-12-05 10:05 [facility]okalemia [facility] 2024-12-05 10:05 Unspecified maternal hypertensi on, third trimester [facility] 2024-12-05 10:05 Mild hyperemesis gravidarum i [employer] 2024-12-05 16:57 Dehydration [employer] [facility] 2024-12-05 16:57 [facility]okalemia [facility] 2024-12-05 16:57 Unspecified maternal hypertensi on, third trimester [facility] 2024-12-05 16:57 Mild hyperemesis gravidarum i [employer] [facility] 2024-12-05 16:57 28 weeks gestation of [employer] 2024-12-05 21:42 Elevated white blood cell count , unspecified [facility] 2024-12-05 21:42 Dehydration [employer] 2024-12-05 21:42 Hypokalemia [facility] 2024-12-05 21:42 Unspecified maternal hypertensi on, third trimester [facility] 2024-12-05 21:42 Mild hyperemesis gravidarum i [facility] 2024-12-05 21:42 28 weeks gestation of [facility] 2024-12-06 11:23 Elevated white blood cell count , unspecified [facility] 2024-12-06 11:23 Dehydration [facility] 2024-12-06 11:23 Hypokalemia [facility] 2024-12-06 11:23 Unspecified maternal hypertensi on, third trimester [facility] 2024-12-06 11:23 Mild hyperemesis gravidarum i [facility] 2024-12-06 11:23 28 weeks gestation of [facility] 2024-12-06 22:31 Elevated white blood cell count , unspecified [facility] 2024-12-06 22:31 Dehydration [facility] 2024-12-06 22:31 Hypokalemia [facility] 2024-12-06 22:31 Unspecified maternal hypertensi on, third trimester [facility] 2024-12-06 22:31 Mild hyperemesis gravidarum i [facility] 2024-12-06 22:31 28 weeks gestation of [facility] 2024-12-07 00:54 Vomiting of , unspecif ied [facility] 2024-12-07 01:25 Vomiting of , [facility]specif ied [facility] 2024-12-07 07:30 Vomiting of , unspecif ied [facility] 2024-12-07 09:42 Elevated white blood cell count , unspecified [facility] 2024-12-07 09:42 Dehydration [facility] 2024-12-07 09:42 Hypokalemia [facility] 2024-12-07 09:42 Unspecified maternal hypertensi on, third trimester [facility] 2024-12-07 09:42 Mild hyperemesis gravidarum i [facility] 2024-12-07 09:42 28 weeks gestation of [facility] 2024-12-07 09:49 Elevated white blood cell count , unspecified [facility] 2024-12-07 09:49 Dehydration [facility] 2024-12-07 09:49 Hypokalemia [facility] 2024-12-07 09:49 Unspecified maternal hypertensi on, third trimester [facility] 2024-12-07 09:49 Mild hyperemesis gravidarum [facility] 2024-12-07 09:49 28 weeks gestation of [facility] 2024-12-07 10:08 Elevated white blood cell count , unspecified [facility] 2024-12-07 10:08 Dehydration [facility] 2024-12-07 10:08 Hypokalemia [facility] 2024-12-07 10:08 Unspecified maternal hypertensi on, third trimester [facility] 2024-12-07 10:08 [facility]esis [facility]arum [facility] 2024-12-07 10:08 Hyperemesis gravidarum with met abolic disturbance [facility] 2024-12-07 10:08 28 weeks gestation of [facility] 2024-12-07 13:51 Vomiting of , unspecif ied [facility] 2024-12-08 10:05 Other specified dise ases and conditions complicating [facility] 2024-12-08 10:05 Other chest pain [facility] 2024-12-09 09:32 Elevated white blood cell count , unspecified [facility] 2024-12-09 09:32 Dehydration [facility] 2024-12-09 09:32 Hypokalemia [facility] 2024-12-09 09:32 Unspecified maternal hypertensi on, third trimester [facility] 2024-12-09 09:32 Mild hyperemesis gravidarum i [employer] 2024-12-09 09:32 Hyperemesis gravidarum with met abolic disturbance [facility] 2024-12-09 09:32 28 weeks gestation of [facility] 2024-12-09 10:02 Mild hyperemesis gravidarum i [employer] 2024-12-09 10:02 Chest pain, unspecified [facility] 2024-12-09 10:13 Mild hyperemesis gravidarum [facility] 2024-12-09 10:13 Vomiting of , unspecif ied [facility] 2024-12-10 12:48 Late vomiting of [facility] 2024-12-10 13:31 Other specified dise ases and conditions complicating [facility] 2024-12-10 14:26 Late vomiting of [facility] 2024-12-11 09:17 Late vomiting of [facility] 2024-12-14 10:51 Mild hyperemesis gravidarum [facility] 2024-12-15 10:00 Procedure and treatm ent not carried out because of patient's decision for other reasons [facility] 2024-12-16 10:38 Mild hyperemesis gravidarum [facility] 2024-12-30 15:00 Encounter for immunization [facility] 2024-12-31 22:16 Vomiting of , unspecif ied [facility] 2024-12-31 22:50 Vomiting of , unspecif ied [facility] 2024-12-31 23:38 Hypokalemia [facility] 2024-12-31 23:38 Essential (primary) hypertensio [facility] 2024-12-31 23:38 Vomiting of , unspecif ied [facility] 2024-12-31 23:58 Hypokalemia [facility] 2024-12-31 23:58 Essential (primary) hypertensio n [facility] 2024-12-31 23:58 Vomiting of , unspecif ied [facility] 2025-01-01 08:10 Diseases of the dige stive system complicating , third trimester [facility] 2025-01-01 08:10 Encounter for immunization [facility] 2025-01-01 08:11 Constipation, unspecified [facility] 2025-01-01 08:11 Diseases of the dige stive system complicating , third trimester [facility] 2025-01-01 08:11 Encounter for immunization [facility] 2025-01-01 08:11 31 weeks gestation of [facility] 2025-01-01 11:18 Hypokalemia [facility] 2025-01-01 11:18 Essential (primary) hypertensio n [facility] 2025-01-01 11:18 [facility] 11:57 Hypokalemia [facility] 2025-01-01 11:57 Essential (primary) hypertensio n [facility] 2025-01-01 11:57 Slow transit constipation [facility] 2025-01-01 11:57 Vomiting of , unspecif [facility] 2025-01-01 13:56 Hypokalemia [facility] 2025-01-01 13:56 Essential (primary) hypertensio [facility] 2025-01-01 13:56 Slow transit constipation [facility] 2025-01-01 13:56 Vomiting of , unspecif [facility] 2025-01-02 09:10 Hypokalemia [facility] 2025-01-02 09:10 Essential (primary) hypertensio [facility] 2025-01-02 09:10 Slow transit constipation [facility] 2025-01-02 09:10 Unspecified maternal hypertensi on, third trimester [facility] 2025-01-02 09:10 Hyperemesis gravidarum with met abolic disturbance [facility] 2025-01-02 09:10 32 weeks gestation of [facility] 2025-01-02 11:58 Hypokalemia [facility] 2025-01-02 11:58 Essential (primary) hypertensio n [facility] 2025-01-02 11:58 Slow transit constipation [facility] 2025-01-02 11:58 Unspecified maternal hypertensi on, third trimester [facility] 2025-01-02 11:58 Hyperemesis gravidarum with met abolic disturbance [facility] 2025-01-02 11:58 32 weeks gestation of [facility] 2025-01-02 15:40 Hypokalemia [facility] 2025-01-02 15:40 Essential (primary) hypertensio n [facility] 2025-01-02 15:40 Slow transit constipation [facility] 2025-01-02 15:40 Unspecified maternal hypertensi on, third trimester [facility] 2025-01-02 15:40 Hyperemesis gravidarum with met abolic disturbance [facility] 2025-01-02 15:40 Other specified preg rhonda related conditions, unspecified trimester [facility] 2025-01-02 15:40 Urgency of urination gwen alth 2025-01-02 15:40 32 weeks gestation of [facility] 2025-01-02 17:44 Hypokalemia [facility] 2025-01-02 17:44 Essential (primary) hypertensio n [facility] 2025-01-02 17:44 Slow transit constipation [facility] 2025-01-02 17:44 Unspecified maternal hypertensi on, third trimester [facility] 2025-01-02 17:44 Hyperemesis gravidarum with met abolic disturbance [facility] 2025-01-02 17:44 Other specified preg rhonda related conditions, unspecified trimester [facility] 2025-01-02 17:44 Urgency of urination gwen Moeller alth 2025-01-02 17:44 32 weeks gestation of [facility] 2025-01-03 10:55 Hypokalemia [facility] 2025-01-03 10:55 Essential (primary) hypertensio n [facility] 2025-01-03 10:55 Slow transit constipation [facility] 2025-01-03 10:55 Unspecified maternal hypertensi on, third trimester [facility] 2025-01-03 10:55 Hyperemesis gravidarum with met abolic disturbance [facility] 2025-01-03 10:55 Other specified preg rhonda related conditions, unspecified trimester [facility] 2025-01-03 10:55 Urgency of urination [facility] 2025-[facility]-03 10:55 32 weeks gestation of [facility] 2025-01-06 09:31 Late vomiting of [facility] 2025-01-06 10:21 Hypokalemia [facility] 2025-01-06 10:21 Essential (primary) hypertensio [facility] 2025-01-06 10:21 Unspecified maternal hypertensi on, third trimester [facility] 2025-01-06 10:21 Decreased move ments, unspecified trimester, not applicable or unspecified [facility] 2025-01-06 14:21 Essential (primary) hypertensio [facility] 2025-01-06 14:23 Essential (primary) hypertensio [facility] 2025-01-07 11:52 Essential (primary) hypertensio [facility] 2025-01-07 12:27 [facility] 2025-01-08 09:46 Late vomiting of [facility] 2025-01-08 14:09 Late vomiting of [facility] 2025-01-08 16:27 Essential (primary) hypertensio [facility] 2025-01-09 00:02 Essential (primary) hypertensio [facility] 2025-01-11 09:55 Late vomiting of [facility] 2025-01-12 14:31 Essential (primary) hypertensio [facility] 2025-01-13 10:27 Essential (primary) hypertensio [facility] 2025-01-13 10:27 Unspecified maternal hypertensi on, third trimester [facility] 2025-01-14 09:20 Essential (primary) hypertensio [facility] 2025-01-14 09:20 Pre-existing essenti al hypertension complicating , third trimester [facility] 2025-01-14 09:20 33 weeks gestation of [facility] 2025-01-18 14:52 Unspecified maternal hypertensi on, third trimester [facility] 2025-01-19 08:02 Vomiting, unspecified [facility] 2025-01-21 07:36 Vomiting, unspecified [facility] 2025-01-22 11:27 Essential (primary) hypertensio n [facility] 2025-01-22 13:49 Unspecified maternal hypertensi on, third trimester [facility] 2025-01-25 09:17 Vomiting, unspecified [facility] 2025-01-25 11:23 Vomiting, unspecified [facility] 2025-01-25 11:57 Vomiting, unspecified [facility] 2025-01-25 12:40 Procedure and treatm ent not carried out because of patient's decision for other reasons [facility] 2025-01-25 12:41 Essential (primary) hypertensio n [facility] 2025-01-25 13:20 Essential (primary) hypertensio n [facility] 2025-01-25 13:20 Unspecified maternal hypertensi on, third trimester [facility] 2025-01-26 13:19 Unspecified maternal hypertensi on, third trimester [facility] 2025-01-27 11:16 Unspecified maternal hypertensi on, third trimester [facility] 2025-01-27 11:16 Encounter for immunization [facility] 2025-01-28 08:23 Vomiting, unspecified [facility] 2025-01-28 09:20 Vomiting, unspecified [facility] 2025-01-28 11:59 Vomiting, unspecified [facility] 2025-01-29 10:21 Vomiting, unspecified [facility] 2025-01-29 10:30 Vomiting, unspecified [facility] 2025-01-29 10:34 Vomiting, unspecified [facility] 2025-02-01 07:49 Vomiting, unspecified [facility] 2025-02-01 09:15 Vomiting, unspecified [facility] 2025-02-01 11:36 Unspecified maternal hypertensi on, third trimester [facility] 2025-02-01 12:06 Vomiting, unspecified [facility] 2025-02-01 12:43 Encounter for screeni ng for Streptococcus B [facility] 2025-02-01 12:44 Encounter for screeni ng for Streptococcus B [facility] 2025-02-01 22:50 Encounter for screeni ng for Streptococcus B [facility] 2025-02-02 00:04 Encounter for screeni ng for Streptococcus B [facility] 2025-02-02 07:55 Encounter for screeni ng for Streptococcus B [facility] 2025-02-02 11:00 Unspecified maternal hypertensi on, third trimester [facility] 2025-02-02 11:02 Unspecified maternal hypertensi on, third trimester [facility] 2025-02-03 13:21 Vomiting of , [facility]if ied [facility] 2025-02-03 15:33 Unspecified pre-exis ting hypertension complicating , third trimester [facility] 2025-02-03 15:33 Encounter for screeni ng for Streptococcus B [facility] 2025-02-04 08:20 Vomiting of , unspecif ied [facility] 2025-02-04 08:24 Vomiting of , unspecif ied [facility] 2025-02-04 09:16 Vomiting of , unspecif ied [facility] 2025-02-04 11:34 Vomiting of , unspecif ied [facility] 2025-02-05 17:19 Unspecified maternal hypertensi on, third trimester [facility] 2025-02-06 00:02 Unspecified maternal hypertensi on, third trimester [facility] 2025-02-08 07:44 Vomiting of , unspecif ied [facility] 2025-02-08 09:39 Vomiting of , unspecif ied [facility] 2025-02-08 10:31 Pre-existing essenti al hypertension complicating , third trimester [facility] 2025-02-08 11:03 Vomiting of , unspecif ied [facility] 2025-02-10 09:09 Pre-existing essenti al hypertension complicating , third trimester [facility] 2025-02-14 14:26 [facility]okalemia [facility] 2025-02-14 14:37 Hypokalemia [facility] 2025-02-15 06:58 Hypokalemia [employer] 2025-02-17 13:50 Hypokalemia [facility] 2025-02-17 13:50 Sacrococcygeal disorders, not e lsewhere classified [employer] 2025-02-19 07:44 Pre-existing essenti al hypertension complicating , third trimester [facility] 2025-02-19 07:44 38 weeks gestation of [facility] 2025-02-19 10:01 Unspecified maternal hypertensi on, third trimester [facility] Results/Labs test date facility value unit notes Result panel 1 NUCLEATED RED BLOOD CELLS AUTO 2024-11-23 19:05 [facility] 0.0 /100wbc (missing) BASOPHILS # (AUTO) 2024-11-23 19:05 [facility] 0.0 10 3/ul (missing) NRBC ABSOLUTE COUNT (AUTO) 2024-11-23 19:05 [facility] 0.00 x10 3/ul (missing) EOSINOPHILS # (AUTO) 2024-11-23 19:05 [facility] 0.1 10 3/ul (missing) CREATININE 2024-11-23 19:05 [facility] 0.5 mg/dl As of October 2022 testing method has changed, this may include reference ranges. BILIRUBIN,TOTAL 2024-11-23 19:05 [facility] 0.7 mg/dl As of October 2022 testing method has changed, this may include reference ranges. MONOCYTES # (AUTO) 2024-11-23 19:05 [facility] 0.9 10 3/ul (missing) ALBUMIN/GLOBULIN RATIO 2024-11-23 19:05 [facility] 1.2 (missing) (missing) CHLORIDE 2024-11-23 19:05 [facility] 105 mmol/l As of October 2022 testing method has changed, this may include reference ranges. HGB - HEMOGLOBIN 2024-11-23 19:05 [facility] 11.8 g/dl (missing) WHITE BLOOD COUNT 2024-11-23 19:05 [facility] 12.4 x10 3/ul (missing) RED CELL DISTRIBUTION WIDTH 2024-11-23 19:05 [facility] 13.3 % (missing) SODIUM 2024-11-23 19:05 [facility] 134 mmol/l (missing) GFR - MDRD 2024-11-23 19:05 [facility] 152 (missing) The IDMS-traceable MDRD Study Equation has been validated extensively in and populations between the ages of 18 and 70 with impaired kidney function (eGFR < 60 mL/min/1.73m2) and has shown good performance for patients with all common causes of kidney disease. Although this equation has not been validated for patients older than 70, an MDRD-derived eGFR may still be a useful tool for providers caring for patients older than 70. References: http://www.nkdep. nih.gov/lab-evalu ation/gfr/creatin ine-stand ardization, last updated June 2011. LYMPHOCYTES # (AUTO) 2024-11-23 19:05 [facility] 2.1 10 3/ul (missing) CARBON DIOXIDE - CO2 2024-11-23 19:05 [facility] 22 mmol/l As of October 2022 testing method has changed, this may include reference ranges. PLT - PLATELET COUNT 2024-11-23 19:05 [facility] 248 10 3/ul (missing) MEAN CORPUSCULAR HEMOGLOBIN 2024-11-23 19:05 [facility] 29.5 pg (missing) GLOBULIN 2024-11-23 19:05 [facility] 3.1 g/dl (missing) ALBUMIN 2024-11-23 19:05 [facility] 3.8 g/dl As of October 2022 testing method has changed, this may include reference ranges. POTASSIUM 2024-11-23 19:05 [facility] 3.8 mmol/l As of October 2022 testing method has changed, this may include reference ranges. MEAN CORPUSCULAR HGB CONC 2024-11-23 19:05 [facility] 34.3 g/dl (missing) HCT - HEMATOCRIT 2024-11-23 19:05 [facility] 34.4 % (missing) RED BLOOD COUNT 2024-11-23 19:05 [facility] 4.00 10 6/ul (missing) ALT ALANINE AMINOTRANSFERASE 2024-11-23 19:05 [facility] 5 iu/l As of October 2022 testing method has changed, this may include reference ranges. BUN - BLOOD UREA NITROGEN 2024-11-23 19:05 [facility] 5 mg/dl As of October 2022 testing method has changed, this may include reference ranges. ALKALINE PHOSPHATASE 2024-11-23 19:05 [facility] 57 iu/l As of October 2022 testing method has changed, this may include reference ranges. TOTAL PROTEIN 2024-11-23 19:05 [facility] 6.9 g/dl As of October 2022 testing method has changed, this may include reference ranges. ANION GAP 2024-11-23 19:05 [facility] 7.0 (missing) (missing) AST ASPARTATE AMINOTRANSFERASE 2024-11-23 19:05 [facility] 8 iu/l As of October 2022 testing method has changed, this may include reference ranges. MEAN CORPUSCULAR VOLUME 2024-11-23 19:05 [facility] 86.0 fl (missing) NEUTROPHILS # (AUTO) 2024-11-23 19:05 [facility] 9.2 10 3/ul (missing) CALCIUM 2024-11-23 19:05 [facility] 9.4 mg/dl As of October 2022 testing method has changed, this may include reference ranges. MEAN PLATELET VOLUME 2024-11-23 19:05 [facility] 9.9 fl (missing) GLUCOSE 2024-11-23 19:05 [facility] 91 mg/dl As of October 2022 testing method has changed, this may include reference ranges. Result panel 2 D-DIMER 2024-11-23 20:07 [facility] 239.8 ng/ml D-Dimer results correspond to ng/mL of d-Dimer Units (D-DU) A cutoff of <230 ng/mL has been established for the negative predictive value for deep venous thrombosis (DVT) and pulmonary embolism (PE). (FDA approved). D-Dimer assay results should be used in conjunction with a clinical pretest probability (PTP) assessment model to exclude venous thromboembolism (VTE) in patient suspected of deep venous thrombosis (DVT) and pulmonary embolism (PE). (revised 03/04/14) Result panel 3 CREATININE,URINE 2024-12-04 23:30 [facility] 238.2 m g/dl As of October 2022 testing method has changed, this may include reference ranges. TOTAL PROTEIN,URINE RANDOM 2024-12-04 23:30 [employer] 62 mg/dl As of Oct testing method has changed, this may include reference ranges. Result panel 4 NUCLEATED RED BLOOD CELLS AUTO 2024-12-04 23:40 [facility] 0.0 /100wbc (missing) BASOPHILS # (AUTO) 2024-12-04 23:40 [facility] [employer] 0.0 10 3/ul (missing) EOSINOPHILS # (AUTO) 2024-12-04 23:40 [facility] [employer] 0.0 10 3/ul (missing) NRBC ABSOLUTE COUNT (AUTO) 2024-12-04 23:40 [facility] 0.00 x10 3/ul (missing) CREATININE 2024-12-04 23:40 [facility] 0.7 mg/dl As of October 2022 testing method has changed, this may include reference ranges. BILIRUBIN,TOTAL 2024-12-04:40 [facility] 0.9 mg/dl As of October 2022 testing method has changed, this may include reference ranges. LYMPHOCYTES # (AUTO) 2024-12-04 23:40 [facility] 1.1 10 3/ul (missing) MONOCYTES # (AUTO) 2024-12-04 23:40 [facility] 1.3 10 3/ul (missing) ALBUMIN/GLOBULIN RATIO 2024-12-04 23:40 [facility] 1.4 (missing) (missing) MAGNESIUM 2024-12-04 23:40 [facility] 1.8 mg/dl As of October 2022 testing method has changed, this may include reference ranges. GFR - MDRD 2024-12-04 23:40 [facility] 103 (missing) The IDMS-traceable MDRD Study Equation has been validated extensively in and populations between the ages of 18 and 70 with impaired kidney function (eGFR < 60 mL/min/1.73m2) and has shown good performance for patients with all common causes of kidney disease. Although this equation has not been validated for patients older than 70, an MDRD-derived eGFR may still be a useful tool for providers caring for patients older than 70. References: http://www.nkdep .nih.gov/lab-angeles luation/gfr/delfina will-stand ardization, last updated June 2011. BUN - BLOOD UREA NITROGEN 2024-12-04 23:40 [facility] 11 mg/dl As of October 2022 testing method has changed, this may include reference ranges. ANION GAP 2024-12-04 23:40 [facility] 12.0 (missing) (missing) HGB - HEMOGLOBIN 2024-12-04 23:40 [facility] 12.5 g/dl (missing) RED CELL DISTRIBUTION WIDTH 2024-12-04 23:40 [facility] 13.4 % (missing) GLUCOSE 2024-12-04 23:40 [facility] 131 mg/dl As of October 2022 testing method has changed, this may include reference ranges. SODIUM 2024-12-04 23:40 [facility] 134 mmol/l (missing) NEUTROPHILS # (AUTO) 2024-12-04 23:40 [facility] 16.6 10 3/ul (missing) WHITE BLOOD COUNT 2024-12-04 23:40 [facility] 19.1 x10 3/ul (missing) LIPASE 2024-12-04 23:40 [facility] 21 u/l As of October 2022 testing method has changed, this may include reference ranges. CARBON DIOXIDE - CO2 2024-12-04 23:40 [facility] 28 mmol/l As of October 2022 testing method has changed, this may include reference ranges. MEAN CORPUSCULAR HEMOGLOBIN 2024-12-04 23:40 [facility] 29.8 pg (missing) GLOBULIN 2024-12-04 23:40 [facility] 3.1 g/dl (missing) POTASSIUM 2024-12-04 23:40 [facility] 3.1 mmol/l As of October 2022 testing method has changed, this may include reference ranges. PLT - PLATELET COUNT 2024-12-04 23:40 [facility] 326 10 3/ul (missing) MEAN CORPUSCULAR HGB CONC 2024-12-04 23:40 [facility] 35.3 g/dl (missing) HCT - HEMATOCRIT 2024-12-04 23:40 [facility] 35.4 % (missing) RED BLOOD COUNT 2024-12-04 23:40 [facility] 4.19 10 6/ul (missing) ALBUMIN 2024-12-04 23:40 [facility] 4.3 g/dl As of October 2022 testing method has changed, this may include reference ranges. ALT ALANINE AMINOTRANSFERASE 2024-12-04 23:40 [facility] 5 iu/l As of October 2022 testing method has changed, this may include reference ranges. ALKALINE PHOSPHATASE 2024-12-04 23:40 [facility] 53 iu/l As of October 2022 testing method has changed, this may include reference ranges. TOTAL PROTEIN 2024-12-04 23:40 [facility] 7.4 g/dl As of October 2022 testing method has changed, this may include reference ranges. MEAN CORPUSCULAR VOLUME 2024-12-04 23:40 [facility] 84.5 fl (missing) AST ASPARTATE AMINOTRANSFERASE 2024-12-04 23:40 [facility] 9 iu/l As of October 2022 testing method has changed, this may include reference ranges. CALCIUM 2024-12-04 23:40 [facility] 9.6 mg/dl As of October 2022 testing method has changed, this may include reference ranges. MEAN PLATELET VOLUME 2024-12-04 23:40 [facility] 9.8 fl (missing) CHLORIDE 2024-12-04 23:40 [facility] 94 mmol/l As of October 2022 testing method has changed, this may include reference ranges. KETONES, SERUM (ACETEST) 2024-12-04 23:40 [facility] NEGATIVE (missing) (missing) Result panel 5 THYROID STIMULATING HORMONE 2024-12-05 07:48 [facility] 0.67 uiu/ml (missing) Result panel 6 MRSA PCR,CCU ADMIT 2024-12-05 09:51 [facility] NEGATIVE (missing) (missing) Result panel 7 RBC,URINE 2024-12-05 10:11 [facility] 0-5 /hpf (missing) UROBILINOGEN,URIN E 2024-12-05 10:11 [facility] 1 (NORMAL) e.u./dl (missing) SPECIFIC GRAVITY,URINE 2024-12-05 10:11 [facility] 1.010 (missing) (missing) GLUCOSE, URINE (UA) 2024-12-05 10:11 [facility] 100 mg/dl (missing) PROTEIN,URINE 2024-12-05 10:11 [facility] 30 mg/dl (missing) KETONES,URINE (UA) 2024-12-05 10:11 [facility] 40 mg/dl (missing) WBC,URINE 2024-12-05 10:11 [facility] 6-10 /hpf (missing) PH,URINE 2024-12-05 10:11 [facility] 8.0 ph (missing) CLARITY,URINE 2024-12-05 10:11 [facility] CLEAR (missing) (missing) COLOR,URINE 2024-12-05 10:11 [facility] DARK YELLOW (missing) URINE CLEAN CATCH URINE MICROSCOPIC INDICATED? 2024-12-05 10:11 [facility] INDICATED (missing) (missing) SQUAMOUS EPITHELIAL CELL,UR 2024-12-05 10:11 [facility] MOD Squamous (missing) (missing) BACTERIA,URINE 2024-12-05 10:11 [facility] Moderate /hpf (missing) NITRITE,URINE 2024-12-05 10:11 [facility] NEGATIVE (missing) (missing) OCCULT BLOOD,URINE 2024-12-05 10:11 [facility] NEGATIVE (missing) (missing) BILIRUBIN,URINE 2024-12-05 10:11 [facility] NEGATIVE (missing) Bilirubin can be influenced by color interference. Please correlate positive results with clinical presentation UR CULTURE IF IND 2024-12-05 10:11 [facility] NOT INDICATED (missing) A culture is not indicated on urine samples contaminated with greater than a few Squamous Epithelial cells/HPF. A mid-stream clean catch urine for culture is recommended. LEUKOCYTE ESTERASE, URINE 2024-12-05 10:11 [facility] TRACE (missing) (missing) Result panel 8 CREATININE 2024-12-05 12:20 [facility] 0.6 mg/dl As of October 2022 testing method has changed, this may include reference ranges. MAGNESIUM 2024-12-05 12:20 [facility] 1.9 mg/dl As of October 2022 testing method has changed, this may include reference ranges. CHLORIDE 2024-12-05 12:20 [facility] 101 mmol/l As of October 2022 testing method has changed, this may include reference ranges. GLUCOSE 2024-12-05 12:20 [facility] 122 mg/dl As of October 2022 testing method has changed, this may include reference ranges. GFR - MDRD 2024-12-05 12:20 [facility] 123 (in g) The IDMS-traceable MDRD Study Equation has been validated extensively in and populations between the ages of 18 and 70 with impaired kidney function (eGFR < 60 mL/min/1.73m2) and has shown good performance for patients with all common causes of kidney disease. Although this equation has not been validated for patients older than 70, an MDRD-derived eGFR may still be a useful tool for providers caring for patients older than 70. References: http://www.nkdep.nih .gov/lab-evaluation/ gfr/creatinine-stand ardization, last updated June 2011. SODIUM 2024-12-05 12:20 [facility] 134 mmol/l (missing) CARBON DIOXIDE - CO2 2024-12-05 12:20 [facility] 24 mmol/l As of Oct testing method has changed, this may include reference ranges. POTASSIUM 2024-12-05 12:20 [facility] 3.3 mmol/l As of October 2022 testing method has changed, this may include reference ranges. BUN - BLOOD UREA NITROGEN 2024-12-05 12:20 [facility] 6 mg/dl As of Oct testing method has changed, this may include reference ranges. ANION GAP 2024-12-05 12:20 [facility] 9.0 (missing ) (missing) CALCIUM 2024-12-05 12:20 [facility] 9.0 mg/dl As of October 2022 testing method has changed, this may include reference ranges. Result panel 9 RBC,URINE 2024-12-05 22:07 [facility] 0-5 /hpf (missing) UROBILINOGEN,URIN E 2024-12-05 22:07 [facility] 1 (NORMAL) e.u./dl (missing) SPECIFIC GRAVITY,URINE 2024-12-05 22:07 [facility] 1.020 (missing) (missing) CREATININE,URINE 2024-12-05 22:07 [facility] 289.5 mg/dl As of October 2022 testing method has changed, this may include reference ranges. TOTAL PROTEIN,URINE RANDOM 2024-12-05 22:07 [facility] 35 mg/dl As of October 2022 testing method has changed, this may include reference ranges. WBC,URINE 2024-12-05:07 [facility] 4-5 /hpf (missing) PH,URINE 2024-12-05 22:07 [facility] 6.0 ph (missing) CLARITY,URINE 2024-12-05 22:07 [facility] CLEAR (missing) (missing) COLOR,URINE 2024-12-05 22:07 [facility] DARK YELLOW (missing) URINE CLEAN CATCH URINE MICROSCOPIC INDICATED? 2024-12-05 22:07 [facility] INDICATED (missing) (missing) SQUAMOUS EPITHELIAL CELL,UR 2024-12-05 22:07 [facility] MANY Squamous (missing) (missing) MUCUS,URINE 2024-12-05:07 [facility] Moderate Strands (missing) (missing) NITRITE,URINE 2024-12-05 22:07 [facility] NEGATIVE (missing) (missing) OCCULT BLOOD,URINE 2024-12-05 22:07 [facility] NEGATIVE (missing) (missing) BILIRUBIN,URINE 2024-12-05 22:07 [facility] NEGATIVE (missing) Bilirubin can be influenced by color interference. Please correlate positive results with clinical presentation GLUCOSE, URINE (UA) 2024-12-05 22:07 [facility] NEGATIVE mg/dl (missing) KETONES,URINE (UA) 2024-12-05 22:07 [facility] NEGATIVE mg/dl (missing) UR CULTURE IF IND 2024-12-05 22:07 [facility] NOT INDICATED (missing) A culture is not indicated on urine samples contaminated with greater than a few Squamous Epithelial cells/HPF. A mid-stream clean catch urine for culture is recommended. BACTERIA,URINE 2024-12-05 22:07 [facility] Rare /hpf (missing) LEUKOCYTE ESTERASE, URINE 2024-12-05 22:07 [facility] SMALL (missing) (missing) PROTEIN,URINE 2024-12-05 22:07 [facility] TRACE mg/dl (missing) Result panel 10 NUCLEATED RED BLOOD CELLS AUTO 2024-12-05 22:21 [facility] 0.0 /100wbc (missing) BASOPHILS # (AUTO) 2024-12-05 22:21 [facility] 0.0 10 3/ul (missing) EOSINOPHILS # (AUTO) 2024-12-05 22:21 [facility] 0.0 10 3/ul (missing) NRBC ABSOLUTE COUNT (AUTO) 2024-12-05 22:21 [facility] 0.00 x10 3/ul (missing) CREATININE 2024-12-05 22:21 [facility] 0.6 mg/dl As of October 2022 testing method has changed, this may include reference ranges. MONOCYTES # (AUTO) 2024-12-05 22:21 [facility] 0.9 10 3/ul (missing) LYMPHOCYTES # (AUTO) 2024-12-05 22:21 [facility] 1.2 10 3/ul (missing) BILIRUBIN,TOTAL 2024-12-05 22:21 [facility] 1.2 mg/dl As of October 2022 testing method has changed, this may include reference ranges. ALBUMIN/GLOBULIN RATIO 2024-12-05 22:21 [facility] 1.3 (missing) (missing) NEUTROPHILS # (AUTO) 2024-12-05 22:21 [facility] 10.3 10 3/ul (missing) CHLORIDE 2024-12-05 22:21 [facility] 102 mmol/l As of October 2022 testing method has changed, this may include reference ranges. GLUCOSE 2024-12-05: [facility] 108 mg/dl As of October 2022 testing method has changed, this may include reference ranges. ANION GAP 2024-12-05:21 [facility] 11.0 (missing) (missing) AST ASPARTATE AMINOTRANSFERASE 2024-12-05 22:21 [facility] 12 iu/l As of October 2022 testing method has changed, this may include reference ranges. HGB - HEMOGLOBIN 2024-12-05 22:21 [facility] 12.0 g/dl (missing) WHITE BLOOD COUNT 2024-12-05 22:21 [facility] 12.5 x10 3/ul (missing) GFR - MDRD 2024-12-05 22:21 [facility] 123 (missing) The IDMS-traceable MDRD Study Equation has been validated extensively in and populations between the ages of 18 and 70 with impaired kidney function (eGFR < 60 mL/min/1.73m2) and has shown good performance for patients with all common causes of kidney disease. Although this equation has not been validated for patients older than 70, an MDRD-derived eGFR may still be a useful tool for providers caring for patients older than 70. References: http://www.nkdep. nih.gov/lab-evalu ation/gfr/creatin ine-stand ardization, last updated June 2011. RED CELL DISTRIBUTION WIDTH 2024-12-05 22:21 [facility] 13.2 % (missing) SODIUM 2024-12-05 22:21 [facility] 135 mmol/l (missing) GLOBULIN 2024-12-05 22:21 [facility] 2.9 g/dl (missing) CARBON DIOXIDE - CO2 2024-12-05:21 [facility] 22 mmol/l As of October 2022 testing method has changed, this may include reference ranges. MEAN CORPUSCULAR HEMOGLOBIN 2024-12-05 22:21 [facility] 29.9 pg (missing) PLT - PLATELET COUNT 2024-12-05 22:21 [facility] 294 10 3/ul (missing) POTASSIUM 2024-12-05 22:21 [facility] 3.4 mmol/l As of October 2022 testing method has changed, this may include reference ranges. ALBUMIN 2024-12-05 22:21 [facility] 3.9 g/dl As of October 2022 testing method has changed, this may include reference ranges. HCT - HEMATOCRIT 2024-12-05 22:21 [facility] 33.6 % (missing) MEAN CORPUSCULAR HGB CONC 2024-12-05 22:21 [facility] 35.7 g/dl (missing) RED BLOOD COUNT 2024-12-05 22:21 [facility] 4.01 10 6/ul (missing) TROPONIN I HIGH SENSITIVITY 2024-12-05 22:21 [facility] 4.5 ng/l A HIGH SENSITIVITY TROPONIN result of >= 14.9 ng/L for females is considered POSITIVE. A HIGH SENSITIVITY TROPONIN result of >= 19.8 ng/L for males is considered POSITIVE. A HIGH SENSITIVITY TROPONIN result of >= 17.9 ng/L for unspecified is considered POSITIVE. ALKALINE PHOSPHATASE 2024-12-05 22:21 [facility] 50 iu/l As of October 2022 testing method has changed, this may include reference ranges. BUN - BLOOD UREA NITROGEN 2024-12-05 22:21 [facility] 6 mg/dl As of October 2022 testing method has changed, this may include reference ranges. TOTAL PROTEIN 2024-12-05:21 [facility] 6.8 g/dl As of October 2022 testing method has changed, this may include reference ranges. MEAN CORPUSCULAR VOLUME 2024-12-05 22:21 [facility] 83.8 fl (missing) ALT ALANINE AMINOTRANSFERASE 2024-12-05 22:21 [facility] 9 iu/l As of October 2022 testing method has changed, this may include reference ranges. CALCIUM 2024-12-05: [facility] 9.4 mg/dl As of October 2022 testing method has changed, this may include reference ranges. MEAN PLATELET VOLUME 2024-12-05 22:21 [facility] 9.6 fl (missing) Result panel 11 KETONES,URINE (UA) 2024-12-31 19:50 [facility] >=80 mg/dl (missing) CASTS, URINE 2024-12-31 19:50 [facility] 0-2 WBC Casts /lpf (missing) RBC,URINE 2024-12-31 19:50 [facility] 0-5 /hpf (missing) UROBILINOGEN,URINE 2024-12-31 19:50 [facility] 0.2 (NORMAL) e.u./dl (missing) PROTEIN/CREATININE RATIO,URINE 2024-12-31 19:50 [facility] 0.2 (missing) (missing) SPECIFIC GRAVITY,URINE 2024-12-31 19:50 [facility] 1.030 (missing) (missing) CREATININE,URINE 2024-12-31 19:50 [facility] 275.4 mg/dl As of October 2022 testing method has changed, this may include reference ranges. PROTEIN,URINE 2024-12-31 19:50 [facility] 30 mg/dl (missing) TOTAL PROTEIN,URINE TIMED 2024-12-31 19:50 [facility] 51 mg/dl As of October 2022 testing method has changed, this may include reference ranges. WBC,URINE 2024-12-31 19:50 [facility] 6-10 /hpf (missing) PH,URINE 2024-12-31 19:50 [facility] 6.0 ph (missing) COLOR,URINE 2024-12-31 19:50 [facility] DARK YELLOW (missing) URINE CLEAN CATCH EPITHELIAL CELLS,UR 2024-12-31 19:50 [facility] FEW Transitional /hpf (missing) BACTERIA,URINE 2024-12-31 19:50 [facility] Few /hpf (missing) SQUAMOUS EPITHELIAL CELL,UR 2024-12-31 19:50 [facility] MANY Squamous (missing) (missing) MUCUS,URINE 2024-12-31 19:50 [facility] Marked Strands (missing) (missing) NITRITE,URINE 2024-12-31 19:50 [facility] NEGATIVE (missing) (missing) OCCULT BLOOD,URINE 2024-12-31 19:50 [facility] NEGATIVE (missing) (missing) GLUCOSE, URINE (UA) 2024-12-31 19:50 [facility] NEGATIVE mg/dl (missing) UR CULTURE IF IND 2024-12-31 19:50 [facility] NOT INDICATED (missing) A culture is not indicated on urine samples contaminated with greater than a few Squamous Epithelial cells/HPF. A mid-stream clean catch urine for culture is recommended. CLARITY,URINE 2024-12-31 19:50 [facility] SL. CLOUDY (missing) (missing) BILIRUBIN,URINE 2024-12-31 19:50 [facility] SMALL (missing) Bilirubin can be influenced by color interference. Please correlate positive results with clinical presentation LEUKOCYTE ESTERASE, URINE 2024-12-31 19:50 [facility] TRACE (missing) (missing) Result panel 12 NUCLEATED RED BLOOD CELLS AUTO 2024-12-31 20:17 [facility] 0.0 /100wbc (missing) BASOPHILS # (AUTO) 2024-12-31 20:17 [facility] 0.0 10 3/ul (missing) EOSINOPHILS # (AUTO) 2024-12-31 20:17 [facility] 0.0 10 3/ul (missing) NRBC ABSOLUTE COUNT (AUTO) 2024-12-31 20:17 [facility] 0.00 x10 3/ul (missing) CREATININE 2024-12-31 20:17 [facility] 0.6 mg/dl As of October 2022 testing method has changed, this may include reference ranges. LYMPHOCYTES # (AUTO) 2024-12-31 20:17 [facility] 1.0 10 3/ul (missing) ALBUMIN/GLOBULIN RATIO 2024-12-31 20:17 [facility] 1.1 (missing) (missing) BILIRUBIN,TOTAL 2024-12-31 20:17 [facility] 1.1 mg/dl As of October 2022 testing method has changed, this may include reference ranges. MONOCYTES # (AUTO) 2024-12-31 20:17 [facility] 1.3 10 3/ul (missing) AST ASPARTATE AMINOTRANSFERASE 2024-12-31 20:17 [facility] 10 iu/l As of October 2022 testing method has changed, this may include reference ranges. MEAN PLATELET VOLUME 2024-12-31 20:17 [facility] 10.1 fl (missing) HGB - HEMOGLOBIN 2024-12-31 20:17 [facility] 11.5 g/dl (missing) GLUCOSE 2024-12-31 20:17 [facility] 115 mg/dl As of October 2022 testing method has changed, this may include reference ranges. ANION GAP 2024-12-31:17 [facility] 12.0 (missing) (missing) GFR - MDRD 2024-12-31 20:17 [facility] 123 (missing) The IDMS-traceable MDRD Study Equation has been validated extensively in and populations between the ages of 18 and 70 with impaired kidney function (eGFR < 60 mL/min/1.73m2) and has shown good performance for patients with all common causes of kidney disease. Although this equation has not been validated for patients older than 70, an MDRD-derived eGFR may still be a useful tool for providers caring for patients older than 70. References: http://www.nkdep. nih.gov/lab-evalu ation/gfr/creatin ine-stand ardization, last updated June 2011. RED CELL DISTRIBUTION WIDTH 2024-12-31 20:17 [facility] 13.7 % (missing) SODIUM 2024-12-31 20:17 [facility] 136 mmol/l (missing) NEUTROPHILS # (AUTO) 2024-12-31 20:17 [facility] 15.2 10 3/ul (missing) WHITE BLOOD COUNT 2024-12-31 20: [facility] 17.8 x10 3/ul (missing) CARBON DIOXIDE - CO2 2024-12-31: [facility] 25 mmol/l As of October 2022 testing method has changed, this may include reference ranges. MEAN CORPUSCULAR HEMOGLOBIN 2024-12-31 20: [facility] 29.0 pg (missing) POTASSIUM 2024-12-31: [facility] 3.2 mmol/l As of October 2022 testing method has changed, this may include reference ranges. GLOBULIN 2024-12-31 20:17 [facility] 3.4 g/dl (missing) ALBUMIN 2024-12-31: [facility] 3.8 g/dl As of October 2022 testing method has changed, this may include reference ranges. RED BLOOD COUNT 2024-12-31 20:17 [facility] 3.96 10 6/ul (missing) PLT - PLATELET COUNT 2024-12-31 20:17 [facility] 324 10 3/ul (missing) HCT - HEMATOCRIT 2024-12-31 20:17 [facility] 33.4 % (missing) MEAN CORPUSCULAR HGB CONC 2024-12-31 20:17 [facility] 34.4 g/dl (missing) ALT ALANINE AMINOTRANSFERASE 2024-12-31 20:17 [facility] 5 iu/l As of October 2022 testing method has changed, this may include reference ranges. BUN - BLOOD UREA NITROGEN 2024-12-31 20:17 [facility] 6 mg/dl As of October 2022 testing method has changed, this may include reference ranges. TOTAL PROTEIN 2024-12-31 20:17 [facility] 7.2 g/dl As of October 2022 testing method has changed, this may include reference ranges. ALKALINE PHOSPHATASE 2024-12-31 20:17 [facility] 75 iu/l As of October 2022 testing method has changed, this may include reference ranges. MEAN CORPUSCULAR VOLUME 2024-12-31 20:17 [facility] 84.3 fl (missing) CALCIUM 2024-12-31 20: [facility] 9.3 mg/dl As of October 2022 testing method has changed, this may include reference ranges. CHLORIDE 2024-12-31 20: [facility] 99 mmol/l As of October 2022 testing method has changed, this may include reference ranges. Result panel 13 CREATININE 2025-01-01 09:26 [facility] 0.5 mg/dl As of October 2022 testing method has changed, this may include reference ranges. BILIRUBIN,TOTAL 2025-01-01 09:26 [facility] 1.0 mg/dl As of October 2022 testing method has changed, this may include reference ranges. ALBUMIN/GLOBULIN RATIO 2025-01-01 09:26 [facility] 1.2 (missing) (missing) CHLORIDE 2025-01-01 09:26 [facility] 101 mmol/l As of October 2022 testing method has changed, this may include reference ranges. ANION GAP 2025-01-01 09:26 [facility] 11.0 (missing) (missing) GLUCOSE 2025-01-01 09:26 [facility] 125 mg/dl As of October 2022 testing method has changed, this may include reference ranges. SODIUM 2025-01-01 09:26 [facility] 131 mmol/l (missing) AST ASPARTATE AMINOTRANSFERASE 2025-01-01 09:26 [facility] 15 iu/l Slightly Hemolyzed: Results may be affected. As of October 2022 testing method has changed, this may include reference ranges. GFR - MDRD 2025-01-01 09:26 [facility] 152 (missing) The IDMS-traceable MDRD Study Equation has been validated extensively in and populations between the ages of 18 and 70 with impaired kidney function (eGFR < 60 mL/min/1.73m2) and has shown good performance for patients with all common causes of kidney disease. Although this equation has not been validated for patients older than 70, an MDRD-derived eGFR may still be a useful tool for providers caring for patients older than 70. References: http://www.nkdep. nih.gov/lab-evalu ation/gfr/creatin ine-stand ardization, last updated June 2011. CARBON DIOXIDE - CO2 2025-01-01 09:26 [facility] 19 mmol/l As of October 2022 testing method has changed, this may include reference ranges. GLOBULIN 2025-01-01 09:26 [facility] 2.7 g/dl (missing) ALBUMIN 2025-01-01 09:26 [facility] 3.2 g/dl As of October 2022 testing method has changed, this may include reference ranges. POTASSIUM 2025-01-01 09:26 [facility] 3.2 mmol/l Slightly Hemolyzed: Results may be affected. As of October 2022 testing method has changed, this may include reference ranges. ALT ALANINE AMINOTRANSFERASE 2025-01-01 09:26 [facility] 4 iu/l As of October 2022 testing method has changed, this may include reference ranges. TOTAL PROTEIN 2025-01-01 09:26 [facility] 5.9 g/dl As of October 2022 testing method has changed, this may include reference ranges. BUN - BLOOD UREA NITROGEN 2025-01-01 09:26 [facility] 6 mg/dl As of October 2022 testing method has changed, this may include reference ranges. ALKALINE PHOSPHATASE 2025-01-01 09:26 [facility] 61 iu/l As of October 2022 testing method has changed, this may include reference ranges. CALCIUM 2025-01-01 09:26 [facility] 8.3 mg/dl As of October 2022 testing method has changed, this may include reference ranges. Result panel 14 NUCLEATED RED BLOOD CELLS AUTO 2025-01-02 09:10 [facility] 0.0 /100wbc (missing) BASOPHILS # (AUTO) 2025-01-02 09:10 [facility] 0.0 10 3/ul (missing) EOSINOPHILS # (AUTO) 2025-01-02 09:10 [facility] 0.0 10 3/ul (missing) NRBC ABSOLUTE COUNT (AUTO) 2025-01-02 09:10 [facility] 0.00 x10 3/ul (missing) CREATININE 2025-01-02 09:10 [facility] 0.5 mg/dl As of October 2022 testing method has changed, this may include reference ranges. MONOCYTES # (AUTO) 2025-01-02 09:10 [facility] 1.0 10 3/ul (missing) LYMPHOCYTES # (AUTO) 2025-01-02 09:10 [facility] 1.0 10 3/ul (missing) ALBUMIN/GLOBULIN RATIO 2025-01-02 09:10 [facility] 1.2 (missing) (missing) BILIRUBIN,TOTAL 2025-01-02 09:10 [facility] 1.3 mg/dl As of October 2022 testing method has changed, this may include reference ranges. ANION GAP 2025-01-02 09:10 [facility] 10.0 (missing) (missing) NEUTROPHILS # (AUTO) 2025-01-02 09:10 [facility] 10.2 10 3/ul (missing) MEAN PLATELET VOLUME 2025-01-02 09:10 [facility] 10.6 fl (missing) HGB - HEMOGLOBIN 2025-01-02 09:10 [facility] 10.8 g/dl (missing) GLUCOSE 2025-01-02 09:10 [facility] 105 mg/dl As of October 2022 testing method has changed, this may include reference ranges. WHITE BLOOD COUNT 2025-01-02 09:10 [facility] 12.4 x10 3/ul (missing) RED CELL DISTRIBUTION WIDTH 2025-01-02 09:10 [facility] 13.5 % (missing) SODIUM 2025-01-02 09:10 [facility] 132 mmol/l (missing) AST ASPARTATE AMINOTRANSFERASE 2025-01-02 09:10 [facility] 14 iu/l As of October 2022 testing method has changed, this may include reference ranges. GFR - MDRD 2025-01-02 09:10 [facility] 152 (missing) The IDMS-traceable MDRD Study Equation has been validated extensively in and populations between the ages of 18 and 70 with impaired kidney function (eGFR < 60 mL/min/1.73m2) and has shown good performance for patients with all common causes of kidney disease. Although this equation has not been validated for patients older than 70, an MDRD-derived eGFR may still be a useful tool for providers caring for patients older than 70. References: http://www.nkdep. nih.gov/lab-evalu ation/gfr/creatin ine-stand ardization, last updated June 2011. CARBON DIOXIDE - CO2 2025-01-02 09:10 [facility] 24 mmol/l As of October 2022 testing method has changed, this may include reference ranges. MEAN CORPUSCULAR HEMOGLOBIN 2025-01-02 09:10 [facility] 29.3 pg (missing) GLOBULIN 2025-01-02 09:10 [facility] 3.0 g/dl (missing) POTASSIUM 2025-01-02 09:10 [facility] 3.0 mmol/l As of October 2022 testing method has changed, this may include reference ranges. RED BLOOD COUNT 2025-01-02 09:10 [facility] 3.69 10 6/ul (missing) ALBUMIN 2025-01-02 09:10 [facility] 3.7 g/dl As of October 2022 testing method has changed, this may include reference ranges. HCT - HEMATOCRIT 2025-01-02 09:10 [facility] 31.2 % (missing) PLT - PLATELET COUNT 2025-01-02 09:10 [facility] 331 10 3/ul (missing) MEAN CORPUSCULAR HGB CONC 2025-01-02 09:10 [facility] 34.6 g/dl (missing) BUN - BLOOD UREA NITROGEN 2025-01-02 09:10 [facility] 6 mg/dl As of October 2022 testing method has changed, this may include reference ranges. TOTAL PROTEIN 2025-01-02 09:10 [facility] 6.7 g/dl As of October 2022 testing method has changed, this may include reference ranges. ALKALINE PHOSPHATASE 2025-01-02 09:10 [facility] 68 iu/l As of October 2022 testing method has changed, this may include reference ranges. CALCIUM 2025-01-02 09:10 [facility] 8.9 mg/dl As of October 2022 testing method has changed, this may include reference ranges. MEAN CORPUSCULAR VOLUME 2025-01-02 09:10 [facility] 84.6 fl (missing) ALT ALANINE AMINOTRANSFERASE 2025-01-02 09:10 [facility] 9 iu/l As of October 2022 testing method has changed, this may include reference ranges. CHLORIDE 2025-01-02 09:10 [facility] 98 mmol/l As of October 2022 testing method has changed, this may include reference ranges. Result panel 15 KETONES,URINE (UA) 2025-01-02 10:00 [facility] >=80 mg/dl (missing) RBC,URINE 2025-01-02 10:00 [facility] 0-5 /hpf (missing) PROTEIN/CREATININE RATIO,URINE 2025-01-02 10:00 [facility] 0.2 (missing) (missing) SPECIFIC GRAVITY,URINE 2025-01-02 10:00 [facility] 1.020 (missing) (missing) UROBILINOGEN,URINE 2025-01-02 10:00 [facility] 2 e.u./dl (missing) CREATININE,URINE 2025-01-02 10:00 [facility] 253.8 mg/dl As of October 2022 testing method has changed, this may include reference ranges. PROTEIN,URINE 2025-01-02 10:00 [facility] 30 mg/dl (missing) TOTAL PROTEIN,URINE TIMED 2025-01-02 10:00 [facility] 44 mg/dl As of October 2022 testing method has changed, this may include reference ranges. WBC,URINE 2025-01-02 10:00 [facility] 6-10 /hpf (missing) PH,URINE 2025-01-02 10:00 [facility] 6.5 ph (missing) CLARITY,URINE 2025-01-02 10:00 [facility] CLEAR (missing) (missing) CUL, URINE 2025-01-02 10:00 [facility] CXPCULTURE IN PROGRESS. RESULTS TO FOLLOW. (missing) (missing) COLOR,URINE 2025-01-02 10:00 [facility] DARK YELLOW (missing) (missing) URINE MICROSCOPIC INDICATED? 2025-01-02 10:00 [facility] INDICATED (missing) (missing) NITRITE,URINE 2025-01-02 10:00 [facility] NEGATIVE (missing) (missing) OCCULT BLOOD,URINE 2025-01-02 10:00 [facility] NEGATIVE (missing) (missing) BARBARA GLABRATA DNA 2025-01-02 10:00 [facility] NEGATIVE (missing) No Barbara glabrata Detected BARBARA GROUP DNA 2025-01-02 10:00 [facility] NEGATIVE (missing) No Barbara group Detected (Barbara albicans and/or Barbara tropicalis and/or Barbara parapsilosis and/or Barbara dubliniensis) BARBARA KRUSEI DNA 2025-01-02 10:00 [facility] NEGATIVE (missing) No Barbara krusei Detected TRICHOMONAS VAGINALIS DNA 2025-01-02 10:00 [facility] NEGATIVE (missing) No Trichomonas vaginalis Detected GLUCOSE, URINE (UA) 2025-01-02 10:00 [facility] NEGATIVE mg/dl (missing) CUL, URINE 2025-01-02 10:00 [facility] NGNo growth (missing) (missing) BACTERIAL VAGINOSIS DNA 2025-01-02 10:00 [facility] POSITIVE (missing) Vaginosis panel DNA Detected. Detection of marker combinations related to bacterial vaginosis: Gardnerella vaginalis and/or L. crispatus and/or L. jensenii and/or Atopobuim vaginae and/or BVAB-2 and/or Megasphaea-1 SQUAMOUS EPITHELIAL CELL,UR 2025-01-02 10:00 [facility] RARE Squamous (missing) (missing) BACTERIA,URINE 2025-01-02 10:00 [facility] Rare /hpf (missing) BILIRUBIN,URINE 2025-01-02 10:00 [facility] SMALL (missing) Bilirubin can be influenced by color interference. Please correlate positive results with clinical presentation LEUKOCYTE ESTERASE, URINE 2025-01-02 10:00 [facility] TRACE (missing) (missing) Result panel 16 KETONES,URINE (UA) 2025-01-03 11:10 [facility] >=80 mg/dl (missing) RBC,URINE 2025-01-03 11:10 [facility] 0-5 /hpf (missing) NUCLEATED RED BLOOD CELLS AUTO 2025-01-03 11:10 [facility] 0.0 /100wbc (missing) BASOPHILS # (AUTO) 2025-01-03 11:10 [facility] 0.0 10 3/ul (missing) EOSINOPHILS # (AUTO) 2025-01-03 11:10 [facility] 0.0 10 3/ul (missing) NRBC ABSOLUTE COUNT (AUTO) 2025-01-03 11:10 [facility] 0.00 x10 3/ul (missing) UROBILINOGEN,URINE 2025-01-03 11:10 [facility] 0.2 (NORMAL) e.u./dl (missing) CREATININE 2025-01-03 11:10 [facility] 0.5 mg/dl As of October 2022 testing method has changed, this may include reference ranges. MONOCYTES # (AUTO) 2025-01-03 11:10 [facility] 0.7 10 3/ul (missing) BILIRUBIN,TOTAL 2025-01-03 11:10 [facility] 0.8 mg/dl As of October 2022 testing method has changed, this may include reference ranges. SPECIFIC GRAVITY,URINE 2025-01-03 11:10 [facility] 1.010 (missing) (missing) ALBUMIN/GLOBULIN RATIO 2025-01-03 11:10 [facility] 1.3 (missing) (missing) LYMPHOCYTES # (AUTO) 2025-01-03 11:10 [facility] 1.5 10 3/ul (missing) MAGNESIUM 2025-01-03 11:10 [facility] 1.6 mg/dl As of October 2022 testing method has changed, this may include reference ranges. ALT ALANINE AMINOTRANSFERASE 2025-01-03 11:10 [facility] 10 iu/l As of October 2022 testing method has changed, this may include reference ranges. WHITE BLOOD COUNT 2025-01-03 11:10 [facility] 10.4 x10 3/ul (missing) HGB - HEMOGLOBIN 2025-01-03 11:10 [facility] 10.6 g/dl (missing) CHLORIDE 2025-01-03 11:10 [facility] 102 mmol/l As of October 2022 testing method has changed, this may include reference ranges. GLUCOSE 2025-01-03 11:10 [facility] 104 mg/dl As of October 2022 testing method has changed, this may include reference ranges. AST ASPARTATE AMINOTRANSFERASE 2025-01-03 11:10 [facility] 12 iu/l As of October 2022 testing method has changed, this may include reference ranges. RED CELL DISTRIBUTION WIDTH 2025-01-03 11:10 [facility] 13.3 % (missing) SODIUM 2025-01-03 11:10 [facility] 133 mmol/l (missing) GFR - MDRD 2025-01-03 11:10 [facility] 152 (missing) The IDMS-traceable MDRD Study Equation has been validated extensively in and populations between the ages of 18 and 70 with impaired kidney function (eGFR < 60 mL/min/1.73m2) and has shown good performance for patients with all common causes of kidney disease. Although this equation has not been validated for patients older than 70, an MDRD-derived eGFR may still be a useful tool for providers caring for patients older than 70. References: http://www.nkdep .nih.gov/lab-angeles luation/gfr/crea tinine-stand ardization, last updated June 2011. PHOSPHORUS 2025-01-03 11:10 [facility] 2.4 mg/dl As of October 2022 testing method has changed, this may include reference ranges. GLOBULIN 2025-01-03 11:10 [facility] 2.7 g/dl (missing) LIPASE 2025-01-03 11:10 [facility] 21 u/l As of October 2022 testing method has changed, this may include reference ranges. CARBON DIOXIDE - CO2 2025-01-03 11:10 [facility] 22 mmol/l As of October 2022 testing method has changed, this may include reference ranges. MEAN CORPUSCULAR HEMOGLOBIN 2025-01-03 11:10 [facility] 28.7 pg (missing) PLT - PLATELET COUNT 2025-01-03 11:10 [facility] 285 10 3/ul (missing) POTASSIUM 2025-01-03 11:10 [facility] 3.3 mmol/l As of October 2022 testing method has changed, this may include reference ranges. ALBUMIN 2025-01-03 11:10 [facility] 3.6 g/dl As of October 2022 testing method has changed, this may include reference ranges. RED BLOOD COUNT 2025-01-03 11:10 [facility] 3.69 10 6/ul (missing) HCT - HEMATOCRIT 2025-01-03 11:10 [facility] 31.2 % (missing) MEAN CORPUSCULAR HGB CONC 2025-01-03 11:10 [facility] 34.0 g/dl (missing) BUN - BLOOD UREA NITROGEN 2025-01-03 11:10 [facility] 4 mg/dl As of October 2022 testing method has changed, this may include reference ranges. WBC,URINE 2025-01-03 11:10 [facility] 6-10 /hpf (missing) TOTAL PROTEIN 2025-01-03 11:10 [facility] 6.3 g/dl As of October 2022 testing method has changed, this may include reference ranges. ALKALINE PHOSPHATASE 2025-01-03 11:10 [facility] 61 iu/l As of October 2022 testing method has changed, this may include reference ranges. NEUTROPHILS # (AUTO) 2025-01-03 11:10 [facility] 8.1 10 3/ul (missing) PH,URINE 2025-01-03 11:10 [facility] 8.5 ph (missing) CALCIUM 2025-01-03 11:10 [facility] 8.9 mg/dl As of October 2022 testing method has changed, this may include reference ranges. MEAN CORPUSCULAR VOLUME 2025-01-03 11:10 [facility] 84.6 fl (missing) ANION GAP 2025-01-03 11:10 [facility] 9.0 (missing) (missing) MEAN PLATELET VOLUME 2025-01-03 11:10 [facility] 9.7 fl (missing) MUCUS,URINE 2025-01-03 11:10 [facility] [place] Strands (missing) (missing) URINE MICROSCOPIC INDICATED? 2025-01-03 11:10 [facility] INDICATED (missing) (missing) SQUAMOUS EPITHELIAL CELL,UR 2025-01-03 11:10 [facility] MANY Squamous (missing) (missing) LEUKOCYTE ESTERASE, URINE 2025-01-03 11:10 [facility] MODERATE (missing) (missing) BACTERIA,URINE 2025-01-03 11:10 [facility] Moderate /hpf (missing) NITRITE,URINE 2025-01-03 11:10 [facility] NEGATIVE (missing) (missing) OCCULT BLOOD,URINE 2025-01-03 11:10 [facility] NEGATIVE (missing) (missing) BILIRUBIN,URINE 2025-01-03 11:10 [facility] NEGATIVE (missing) Bilirubin can be influenced by color interference. Please correlate positive results with clinical presentation GLUCOSE, URINE (UA) 2025-01-03 11:10 [facility] NEGATIVE mg/dl (missing) UR CULTURE IF IND 2025-01-03 11:10 [facility] NOT INDICATED (missing) A culture is not indicated on urine samples contaminated with greater than a few Squamous Epithelial cells/HPF. A mid-stream clean catch urine for culture is recommended. CLARITY,URINE 2025-01-03 11:[address] [facility] CLOUDY (missing) (missing) PROTEIN,URINE 2025-01-03 11:10 [facility] TRACE mg/dl (missing) COLOR,URINE 2025-01-03 11:10 [facility] YELLOW (missing) URINE CLEAN CATCH Result panel 17 MUDS CUTOFF CONCENTRATIONS 2025-01-03 15:11 [facility] CUTOFF CONC BELOW: (missing) [facility] uses the PROFILE-V Kadient Drugs of Abuse Test System. It detects drug classes at the following cutoff concentrations: AMP Amphetamine (d-Amphetamine) 500 ng/mL BAR Barbiturates (Butalbital) 200 ng/mL BZO Benzodiazepines (Nordiazepam) 150 ng/mL BUP Buprenorphine (Buprenorphine) 10 ng/mL KATHRINE Cocaine (Benzoylecgonine) 150 ng/mL MAMP Methamphetamine (d-Methamphetamine) 500 ng/mL MTD Methadone (Methadone) 200 ng/mL OPI Opiates (Morphine) 100 ng/mL OXY Oxycodone (Oxycodone) 100 ng/mL PCP Phencyclidine (Phencyclidine) 25 ng/mL BUP Buprenorphine (Buprenorphine) 10 ng/mL THC Cannabinoids ([id number]) 50 ng/mL TCA Tricyclic Antidepressants (Desipramine) 300 ng/mL All drug screen results are unconfirmed. Results are to be used for medical (i.e. treatment) purposes only. Unconfirmed screening results must not be used for non-medical purposes (e.g., employment testing, legal testing). AMPHETAMINE SCREEN,URINE 2025-01-03 15:11 [facility] NEGATIVE (missing) (missing) BARBITURATE SCREEN,UR 2025-01-03 15:11 [facility] NEGATIVE (missing) (missing) BENZODIAZEPINES SCREEN, URINE 2025-01-03 15:11 [facility] NEGATIVE (missing) (missing) BUPRENORPHINE SCREEN, URINE 2025-01-03 15:11 [facility] NEGATIVE (missing) (missing) COCAINE SCREEN URINE 2025-01-03 15:11 [facility] NEGATIVE (missing) (missing) METHADONE SCREEN, URINE 2025-01-03 15:11 [facility] NEGATIVE (missing) (missing) METHAMPHETAMINES SCREEN, URINE 2025-01-03 15:11 [facility] NEGATIVE (missing) (missing) OPIATE SCREEN, URINE 2025-01-03 15:11 [facility] NEGATIVE (missing) (missing) OXYCODONE SCREEN, URINE 2025-01-03 15:11 [facility] NEGATIVE (missing) (missing) PHENCYCLIDINE SCREEN, URINE 2025-01-03 15:11 [facility] NEGATIVE (missing) (missing) TRICYCLIC ANTIDEPRESSANT,URI NE 2025-01-03 15:11 [facility] NEGATIVE (missing) (missing) FENTANYL SCREEN, URINE 2025-01-03 15:11 [facility] Negative (missing) [facility] uses L ZI Fentanyl (Q) Enzyme Immunoassay. RESULT INTERPRETATION: This assay qualitatively detects norfentanyl in urine which is the major metabolite of fentanyl. A result greater than or equal to 5 ng/mL is considered presumptively positive for fentanyl exposure. CLINICAL SIGNIFICANCE: Presumptive positive results indicate norfentanyl concentrations above the assay cutoff. Due to possible cross-reactivity and potential interference, confirmatory testing by a definitive method (e.g., LC-MS/MS) is recommended for positive or unexpected findings. LIMITATIONS: This test is intended for qualitative screening and is unconfirmed. Concentrations below 5 ng/mL may not be reliably detected. False positives and false negatives are possible. Results are to be used for medical purposes only and can't be used for non-medical or legal purposes. THC CANNABINOID SCREEN, URINE 2025-01-03 15:11 [facility] POSITIVE (missing) (missing) Result panel 18 CUL,GBS SCREEN 2025-02-01 12:40 [facility] (missing) (mi ssing) (missing) CUL,GBS SCREEN 2025-02-01 12:40 [facility] CXPCULT URE IN PROGRESS. RESULTS TO FOLLOW. (missing) (missing) CUL,GBS SCREEN 2025-02-01 12:40 [facility] NO Grou p B Beta-Hemolytic Streptococcus isolated (missing) (missing) CUL,GBS SCREEN 2025-02-01 12:40 [facility] PCR tangela ting may yield a positive result in the absence of (missing) (missing) GBSPCR,REFLEX IF PEN ALLERGIC 2025-02-01 12:40 [facility] POSITIVE (missing) (ric ng) CUL,GBS SCREEN 2025-02-01 12:40 [facility] viable organi sms. (missing) (missing) Result panel 19 NUCLEATED RED BLOOD CELLS AUTO 2025-02-12 11:03 [facility] 0.0 /100wbc (missing) BASOPHILS # (AUTO) 2025-02-12 11:03 [facility] 0.0 10 3/ul (missing) EOSINOPHILS # (AUTO) 2025-02-12 11:03 [facility] 0.0 10 3/ul (missing) NRBC ABSOLUTE COUNT (AUTO) 2025-02-12 11:03 [facility] 0.00 x10 3/ul (missing) CREATININE 2025-02-12 11:03 [facility] 0.6 mg/dl As of October 2022 testing method has changed, this may include reference ranges. RBC MORPHOLOGY (MULTIPLE) 2025-02-12 11:03 [facility] 1+ POLYCHROMASIA (missing) (missing) LYMPHOCYTES # (AUTO) 2025-02-12 11:03 [facility] 1.1 10 3/ul (missing) BILIRUBIN,TOTAL 2025-02-12 11:03 [facility] 1.1 mg/dl As of October 2022 testing method has changed, this may include reference ranges. ALBUMIN/GLOBULIN RATIO 2025-02-12 11:03 [facility] 1.2 (missing) (missing) MONOCYTES # (AUTO) 2025-02-12 11:03 [facility] 1.5 10 3/ul (missing) MEAN PLATELET VOLUME 2025-02-12 11:03 [facility] 10.4 fl (missing) HGB - HEMOGLOBIN 2025-02-12 11:03 [facility] 10.8 g/dl (missing) ALKALINE PHOSPHATASE 2025-02-12 11:03 [facility] 112 iu/l As of October 2022 testing method has changed, this may include reference ranges. GLUCOSE 2025-02-12 11:03 [facility] 118 mg/dl As of October 2022 testing method has changed, this may include reference ranges. ANION GAP 2025-02-12 11:03 [facility] 12.0 (missing) (missing) GFR - MDRD 2025-02-12 11:03 [facility] 123 (missing) The IDMS-traceable MDRD Study Equation has been validated extensively in and populations between the ages of 18 and 70 with impaired kidney function (eGFR < 60 mL/min/1.73m2) and has shown good performance for patients with all common causes of kidney disease. Although this equation has not been validated for patients older than 70, an MDRD-derived eGFR may still be a useful tool for providers caring for patients older than 70. References: http://www.nkde p.nih.gov/lab-e valuation/gfr/c reatinine-stand ardization, last updated June 2011. RED CELL DISTRIBUTION WIDTH 2025-02-12 11:03 [facility] 13.9 % (missing) SODIUM 2025-02-12 11:03 [facility] 134 mmol/l (missing) AST ASPARTATE AMINOTRANSFERASE 2025-02-12 11:03 [facility] 14 iu/l As of October 2022 testing method has changed, this may include reference ranges. NEUTROPHILS # (AUTO) 2025-02-12 11:03 [facility] 16.7 10 3/ul (missing) WHITE BLOOD COUNT 2025-02-12 11:03 [facility] 19.6 x10 3/ul (missing) CARBON DIOXIDE - CO2 2025-02-12 11:03 [facility] 24 mmol/l As of October 2022 testing method has changed, this may include reference ranges. MEAN CORPUSCULAR HEMOGLOBIN 2025-02-12 11:03 [facility] 27.0 pg (missing) GLOBULIN 2025-02-12 11:03 [facility] 3.1 g/dl (missing) POTASSIUM 2025-02-12 11:03 [facility] 3.4 mmol/l As of October 2022 testing method has changed, this may include reference ranges. ALBUMIN 2025-02-12 11:03 [facility] 3.8 g/dl As of October 2022 testing method has changed, this may include reference ranges. HCT - HEMATOCRIT 2025-02-12 11:03 [facility] 32.6 % (missing) MEAN CORPUSCULAR HGB CONC 2025-02-12 11:03 [facility] 33.1 g/dl (missing) RED BLOOD COUNT 2025-02-12 11:03 [facility] 4.00 10 6/ul (missing) PLT - PLATELET COUNT 2025-02-12 11:03 [facility] 404 10 3/ul (missing) ALT ALANINE AMINOTRANSFERASE 2025-02-12 11:03 [facility] 6 iu/l As of October 2022 testing method has changed, this may include reference ranges. TOTAL PROTEIN 2025-02-12 11:03 [facility] 6.9 g/dl As of October 2022 testing method has changed, this may include reference ranges. MEAN CORPUSCULAR VOLUME 2025-02-12 11:03 [facility] 81.5 fl (missing) BUN - BLOOD UREA NITROGEN 2025-02-12 11:03 [facility] 9 mg/dl As of October 2022 testing method has changed, this may include reference ranges. CALCIUM 2025-02-12 11:03 [facility] 9.3 mg/dl As of October 2022 testing method has changed, this may include reference ranges. CHLORIDE 2025-02-12 11:03 [facility] 98 mmol/l As of October 2022 testing method has changed, this may include reference ranges. SLIDE REVIEW? 2025-02-12 11:03 [facility] Indicated (missing) (missing) DIFFERENTIAL COMMENT 2025-02-12 11:03 [facility] MANUAL=AUTO DIFF (missing) MANUAL DIFFERENTIAL AGREES WITH AUTO DIFFERENTIAL PLATELET ESTIMATE, MANUAL 2025-02-12 11:03 [facility] NORMAL ([id number],000) (missing) (missing) PLATELET MORPHOLOGY 2025-02-12 11:03 [facility] NORMAL APPEARANCE (missing) (missing) WBC MORPHOLOGY (MULTIPLE) 2025-02-12 11:03 [facility] NORMAL APPEARANCE (missing) (missing) Result panel 20 PROTEIN/CREATININE RATIO,URINE 2025-02-12 13:10 [facility] 0.1 (missing) (missing) CREATININE,URINE 2025-02-12 13:10 [facility] 396.4 mg/dl As of October 2022 testing method has changed, this may include reference ranges. TOTAL PROTEIN,URINE TIMED 2025-02-12 13:10 [employer] [facility] 59 mg/dl As of October 2022 testing method has changed, this may include reference ranges. Result panel 21 NUCLEATED RED BLOOD CELLS AUTO 2025-02-14 10:54 [facility] 0.0 /100wbc (missing) BASOPHILS # (AUTO) 2025-02-14 10:54 [facility] 0.0 10 3/ul (missing) NRBC ABSOLUTE COUNT (AUTO) 2025-02-14 10:54 [facility] 0.00 x10 3/ul (missing) EOSINOPHILS # (AUTO) 2025-02-14 10:54 [facility] 0.1 10 3/ul (missing) CREATININE 2025-02-14 10:54 [facility] 0.6 mg/dl As of October 2022 testing method has changed, this may include reference ranges. ALBUMIN/GLOBULIN RATIO 2025-02-14 10:54 [facility] 1.1 (missing) (missing) BILIRUBIN,TOTAL 2025-02-14 10:54 [facility] 1.2 mg/dl As of October 2022 testing method has changed, this may include reference ranges. MONOCYTES # (AUTO) 2025-02-14 10:54 [facility] 1.3 10 3/ul (missing) LYMPHOCYTES # (AUTO) 2025-02-14 10:54 [facility] 1.8 10 3/ul (missing) NEUTROPHILS # (AUTO) 2025-02-14 10:54 [facility] 10.2 10 3/ul (missing) MEAN PLATELET VOLUME 2025-02-14 10:54 [facility] 10.2 fl (missing) GLUCOSE 2025-02-14 10:54 [facility] 108 mg/dl As of October 2022 testing method has changed, this may include reference ranges. ANION GAP 2025-02-14 10:54 [facility] 11.0 (missing) (missing) HGB - HEMOGLOBIN 2025-02-14 10:54 [facility] 11.6 g/dl (missing) ALKALINE PHOSPHATASE 2025-02-14 10:54 [facility] 122 iu/l As of October 2022 testing method has changed, this may include reference ranges. GFR - MDRD 2025-02-14 10:54 [facility] 123 (missing) The IDMS-traceable MDRD Study Equation has been validated extensively in and populations between the ages of 18 and 70 with impaired kidney function (eGFR < 60 mL/min/1.73m2) and has shown good performance for patients with all common causes of kidney disease. Although this equation has not been validated for patients older than 70, an MDRD-derived eGFR may still be a useful tool for providers caring for patients older than 70. References: http://www.nkdep. nih.gov/lab-evalu ation/gfr/creatin ine-stand ardization, last updated June 2011. WHITE BLOOD COUNT 2025-02-14 10:54 [facility] 13.5 x10 3/ul (missing) RED CELL DISTRIBUTION WIDTH 2025-02-14 10:54 [facility] 13.6 % (missing) SODIUM 2025-02-14 10:54 [facility] 132 mmol/l (missing) ALT ALANINE AMINOTRANSFERASE 2025-02-14 10:54 [facility] 15 iu/l As of October 2022 testing method has changed, this may include reference ranges. POTASSIUM 2025-02-14 10:54 [facility] 2.9 mmol/l As of October 2022 testing method has changed, this may include reference ranges. AST ASPARTATE AMINOTRANSFERASE 2025-02-14 10:54 [facility] 20 iu/l As of October 2022 testing method has changed, this may include reference ranges. CARBON DIOXIDE - CO2 2025-02-14 10:54 [facility] 27 mmol/l As of October 2022 testing method has changed, this may include reference ranges. MEAN CORPUSCULAR HEMOGLOBIN 2025-02-14 10:54 [facility] 27.0 pg (missing) GLOBULIN 2025-02-14 10:54 [facility] 3.5 g/dl (missing) ALBUMIN 2025-02-14 10:54 [facility] 3.7 g/dl As of October 2022 testing method has changed, this may include reference ranges. MEAN CORPUSCULAR HGB CONC 2025-02-14 10:54 [facility] 33.2 g/dl (missing) HCT - HEMATOCRIT 2025-02-14 10:54 [facility] 34.9 % (missing) RED BLOOD COUNT 2025-02-14 10:54 [facility] 4.30 10 6/ul (missing) PLT - PLATELET COUNT 2025-02-14 10:54 [facility] 433 10 3/ul (missing) BUN - BLOOD UREA NITROGEN 2025-02-14 10:54 [facility] 7 mg/dl As of October 2022 testing method has changed, this may include reference ranges. TOTAL PROTEIN 2025-02-14 10:54 [facility] 7.2 g/dl As of October 2022 testing method has changed, this may include reference ranges. MEAN CORPUSCULAR VOLUME 2025-02-14 10:54 [facility] 81.2 fl (missing) CALCIUM 2025-02-14 10:54 [facility] 9.3 mg/dl As of October 2022 testing method has changed, this may include reference ranges. CHLORIDE 2025-02-14 10:54 [facility] 94 mmol/l As of October 2022 testing method has changed, this may include reference ranges. Result panel 22 NUCLEATED RED BLOOD CELLS AUTO 2025-02-19 08:49 [facility] 0.0 /100wbc (missing) BASOPHILS # (AUTO) 2025-02-19 08:49 [facility] 0.0 10 3/ul (missing) EOSINOPHILS # (AUTO) 2025-02-19 08:49 [facility] 0.0 10 3/ul (missing) NRBC ABSOLUTE COUNT (AUTO) 2025-02-19 08:49 [facility] 0.00 x10 3/ul (missing) CREATININE 2025-02-19 08:49 [facility] 0.6 mg/dl As of October 2022 testing method has changed, this may include reference ranges. MONOCYTES # (AUTO) 2025-02-19 08:49 [facility] 0.9 10 3/ul (missing) BILIRUBIN,TOTAL 2025-02-19 08:49 [facility] 0.9 mg/dl As of October 2022 testing method has changed, this may include reference ranges. PLATELET MORPHOLOGY 2025-02-19 08:49 [facility] 1+ LARGE PLATELETS (missing) (missing) ALBUMIN/GLOBULIN RATIO 2025-02-19 08:49 [facility] 1.1 (missing) (missing) LYMPHOCYTES # (AUTO) 2025-02-19 08:49 [facility] 1.2 10 3/ul (missing) MAGNESIUM 2025-02-19 08:49 [facility] 1.8 mg/dl As of October 2022 testing method has changed, this may include reference ranges. NEUTROPHILS # (AUTO) 2025-02-19 08:49 [facility] 11.1 10 3/ul (missing) HGB - HEMOGLOBIN 2025-02-19 08:49 [facility] 11.1 g/dl (missing) MEAN PLATELET VOLUME 2025-02-19 08:49 [facility] 11.6 fl (missing) GFR - MDRD 2025-02-19 08:49 [facility] 123 (missing) The IDMS-traceable MDRD Study Equation has been validated extensively in and populations between the ages of 18 and 70 with impaired kidney function (eGFR < 60 mL/min/1.73m2) and has shown good performance for patients with all common causes of kidney disease. Although this equation has not been validated for patients older than 70, an MDRD-derived eGFR may still be a useful tool for providers caring for patients older than 70. References: http://www.nkde p.nih.gov/lab-e valuation/gfr/c reatinine-stand ardization, last updated June 2011. GLUCOSE 2025-02-19 08:49 [facility] 123 mg/dl As of October 2022 testing method has changed, this may include reference ranges. ALKALINE PHOSPHATASE 2025-02-19 08:49 [facility] 125 iu/l As of October 2022 testing method has changed, this may include reference ranges. AST ASPARTATE AMINOTRANSFERASE 2025-02-19 08:49 [facility] 13 iu/l As of October 2022 testing method has changed, this may include reference ranges. ANION GAP 2025-02-19 08:49 [facility] 13.0 (missing) (missing) WHITE BLOOD COUNT 2025-02-19 08:49 [facility] 13.3 x10 3/ul (missing) RED CELL DISTRIBUTION WIDTH 2025-02-19 08:49 [facility] 13.8 % (missing) SODIUM 2025-02-19 08:49 [facility] 134 mmol/l (missing) CARBON DIOXIDE - CO2 2025-02-19 08:49 [facility] 23 mmol/l As of October 2022 testing method has changed, this may include reference ranges. MEAN CORPUSCULAR HEMOGLOBIN 2025-02-19 08:49 [facility] 27.3 pg (missing) GLOBULIN 2025-02-19 08:49 [facility] 3.5 g/dl (missing) ALBUMIN 2025-02-19 08:49 [facility] 3.7 g/dl As of October 2022 testing method has changed, this may include reference ranges. POTASSIUM 2025-02-19 08:49 [facility] 3.9 mmol/l As of October 2022 testing method has changed, this may include reference ranges. PLT - PLATELET COUNT 2025-02-19 08:49 [facility] 325 10 3/ul (missing) MEAN CORPUSCULAR HGB CONC 2025-02-19 08:49 [facility] 33.2 g/dl (missing) HCT - HEMATOCRIT 2025-02-19 08:49 [facility] 33.4 % (missing) RED BLOOD COUNT 2025-02-19 08:49 [facility] 4.07 10 6/ul (missing) TOTAL PROTEIN 2025-02-19 08:49 [facility] 7.2 g/dl As of October 2022 testing method has changed, this may include reference ranges. MEAN CORPUSCULAR VOLUME 2025-02-19 08:49 [facility] 82.1 fl (missing) ALT ALANINE AMINOTRANSFERASE 2025-02-19 08:49 [facility] 9 iu/l As of October 2022 testing method has changed, this may include reference ranges. BUN - BLOOD UREA NITROGEN 2025-02-19 08:49 [facility] 9 mg/dl As of October 2022 testing method has changed, this may include reference ranges. CALCIUM 2025-02-19 08:49 [facility] 9.8 mg/dl As of October 2022 testing method has changed, this may include reference ranges. CHLORIDE 2025-02-19 08:49 [facility] 98 mmol/l As of October 2022 testing method has changed, this may include reference ranges. PLATELET MORPHOLOGY 2025-02-19 08:49 [facility] FEW PLATELET CLUMPS (missing) (missing) SLIDE REVIEW? 2025-02-19 08:49 [facility] Indicated (missing) (missing) PLATELET ESTIMATE, MANUAL 2025-02-19 08:49 [facility] NORMAL (130-450,000) (missing) (missing) RBC MORPHOLOGY (MULTIPLE) 2025-02-19 08:49 [facility] NORMAL APPEARANCE (missing) (missing) Social History date description facility
[2025-02-19 10:35] LABS: ESTIMATED AVERAGE GLUCOSE 103 mg/dL (70-100); HEMOGLOBIN A1c% 5.2 % (4.27-6.07)
[2025-02-19] MEDS: hydrOXYzine 50 MG/ML VIAL IM PRN (11:14)
[2025-02-19] MEDS: METOCLOPRAMIDE 10 MG TABLET PO PRN (13:53)
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
--- NOTE | 2025-02-19 22:59 | PROVIDER PROGRESS NOTE ---
Progress Note Progress Note Progress Note: Patient is doing very well. resting, walking. has eaten toast and a bit of a sandwich. Ready for more toast now. has not felt much in way of contractions. cervix /-2 mid 50 mcg miso placed in vagina. FHT category 1. Plan: start ampicillin at [place]. if labor, great. epidural any time. if no labor I will come and AROM in am.
[2025-02-19] MEDS ORDERED: AMPICILLIN 1 GM in SODIUM CHLORIDE 0.9% MINIBAG 100 ML IV SCH (23:00)
[2025-02-20] MEDS: AMPICILLIN 2 GM in SODIUM CHLORIDE 0.9% MINIBAG 100 ML IV ONE (00:01)
[2025-02-20] MEDS ORDERED: ROPIVACAINE 0.2% 200 MG/100 ML BAG EP ONE (02:31)
[2025-02-20] MEDS ORDERED: ROPIVACAINE 0.2% 200 MG/100 ML BAG EP PRN (03:02)
[2025-02-20] MEDS ORDERED: LACTATED RINGERS 500 ML IV ONE (03:02)
[2025-02-20] MEDS ORDERED: NALOXONE 0.4 MG/ML VIAL IVP PRN (03:02)
[2025-02-20] MEDS ORDERED: NALBUPHINE 10 MG/ML AMP IVP PRN (03:02)
[2025-02-20] MEDS ORDERED: ePHEDrine 50 MG/ML VIAL IVP PRN (03:02)
[2025-02-20] MEDS ORDERED: METOCLOPRAMIDE 10 MG/2 ML VIAL IVP PRN (03:02)
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
[2025-02-20] MEDS: ONDANSETRON 4 MG/2 ML VIAL IVP PRN (03:51)
[2025-02-20] MEDS: AMPICILLIN 1 GM in SODIUM CHLORIDE 0.9% MINIBAG 100 ML IV SCH (04:05)
[2025-02-20] MEDS: OXYTOCIN/SODIUM CHLORIDE 500 ML IV PRN (05:48)
[2025-02-20] MEDS ORDERED: WITCH HAZEL/GLYCERIN 1 PAD TOP PRN (06:04)
[2025-02-20] MEDS ORDERED: SIMETHICONE CHEW 80 MG TABLET PO PRN (06:04)
[2025-02-20] MEDS ORDERED: HYDROCORTISONE 1% CREAM 28 GM TUBE TOP PRN (06:04)
--- NOTE | 2025-02-20 06:15 | DELIVERY NOTE ---
OB Labor and Delivery Note Labor Labor: Other (induced with misoprostol) Delivery Method Delivery Method: Spontaneous vaginal delivery Cervical Ripening Method Cervical Ripening Method: Misoprostil Presentation Presentation: Vertex and OA - occiput anterior Nuchal Cord Nuchal Cord: Present and Reduced Amniotic Fluid Description Amniotic Fluid Description: Other (never saw any fluid. AROM just before delivery but nothing came out. ) Episiotomy Type Episiotomy Type: None Laceration Laceration: None Delivery Outcome Delivery Date: 02/20/25 Delivery Time: 05:44 Delivery Outcome: Livebirth : Placed in direct skin contact with mother, Stimulated and Uneeda used Cord Cord: 3 vessels Placenta Placenta: Intact and Spontaneous Estimated Blood Loss Estimated Blood Loss (in cc): 100 Post Delivery Events Post Delivery Events: No post delivery events Delivery Comments (Free Text/Narrative) Delivery Comments (Free Text/Narrative): Patient presented for labor induction. due to hyperemesis but also chronic hypertension. no meds for last week. She was feeling very bad with her hyperemesis when she got here. It took from 8 until 2 pm to get her feeling well enough to start the induction. Miso 25 at 2, 6, and then 50 cmg just before 11. all vaginally. That started labor. antibiotics at midnight of gbs. Got 2 doses. Epidural placed at about 2:30. worked great for her. complete at 0528. pushed thru 2 contractions to deliver baby in OA presentation at 05:44. hand came up before shoulders. Nuchal cord x 1 reduced. placenta at 4 min. very little bleeding and uterus quite firm. Oxytocin infused in the iv and then turned down to 250 mu/min. no tears. Mom and baby boy James doing great. lots of family support.
[2025-02-20] MEDS: ACETAMINOPHEN 500 MG TABLET PO PRN (09:34)
[2025-02-20] MEDS: DOCUSATE SODIUM 100 MG CAPSULE PO SCH (09:34)
[2025-02-20] MEDS: IBUPROFEN 600 MG TABLET PO PRN (09:34)
[2025-02-21] MEDS: oxyCODONE 5 MG TABLET PO PRN (13:35)
--- NOTE | 2025-02-21 16:28 | PROVIDER PROGRESS NOTE ---
Progress Note Progress Note Progress Note: patient doing very well. happy to have woken up and not be nauseated after so long of it. Baby under bili lights working on feeding. minimal bleeding. really doing very well. plan for discharge tomorrow. VS 138/78. did not check a cbc as so little bleeding. did discuss new findings that hyperemesis can be genetic and there likely will be new findings about that in the next few years. Some hope for her if she does decide to get again.
[2025-02-22 08:51] VITALS: O2SAT 99
--- NOTE | 2025-02-22 10:56 | Discharge Summary ---
"Discharge Summary Admit Date: 02/19/25 Discharge Date: 02/22/25 Discharging Provider: Joselin De La Cruz MD Code Status: Attempt Resuscitation DIAGNOSES Admission Diagnoses: at 39 weeks. gestational hypertension. severe hyperemesis, recent fall. Discharge Diagnoses with Status of Each Condition: s/p vaginal delivery. no hypertension, hyperemesis resolved. HPI History of Present Illness: 24 yo now 2 admitted for induction. miserable this with hyperemesis and ready to be done. some hypertension but has not taken her nifedipine in about a week and bp is normal. CONSULTS | PROCEDURES Procedures: vaginal delivery with epidural anesthesia. HOSPITAL COURSE Hospital Course: Patient admitted Saturday am. took until 2 pm to get her feeling well enough to start her induction. miso 25 mcg x 2 given with on effect. then 50 mcg given at 2300. She was 3 cm. From there she started active labor. Epidural at 2 am. Delivery with pushing thru 2 contractions at 5:45 am. did great. felt very little after her epidural. baby boy James 7+ pounds. course unremarkable but baby had to go under lights. ALLERGIES Allergies Allergy/AdvReac Type Severity Reaction Status Date / Time No Known Drug Allergies Allergy Verified 02/14/25 10:34 MEDICATIONS Ambulatory Orders Medication Instructions Recorded Confirmed omeprazole 20 mg capsule,delayed 20 mg PO BID PRN hear tburn #60 caps 12/14/24 02/19/25 release ondansetron 4 mg disintegrating 4 mg PO Q8H PRN nausea and 12/14/24 02/19/25 tablet vomiting #60 tabs vits no.126-ferrous fum 1 tab PO DAILY 02/19/25 28 mg iron-folic acid 800 mcg tablet (Classic ) glycerin (child) 1 supp MD DAILY PRN Constipa tion 01/01/25 02/19/25 #12 ea breast pump #1 ea 02/01/25 02/15/25 bisacodyl 10 mg rectal suppository 10 mg MD QDAY PRN c onstipation #12 02/15/25 02/19/25 ea docusate sodium 100 mg capsule 100 mg PO BID PRN const ipation #60 02/22/25 (Colace) caps ibuprofen 600 mg tablet 600 mg PO Q6H PRN pain #30 t abs 02/22/25 vitamins no.154-ferrous 1 tab PO .daily #90 t abs 02/22/25 fumarate 27 mg-folic acid 1 mg tablet PHYSICAL EXAM AT DISCHARGE Vital Signs: Vital Signs x48h Temp Pulse Resp BP Pulse Ox 02/22/25 08:50 37.1 C 89 19 141/86 H 99 02/22/25 02:58 73 16 111/66 General Appearance: positive No acute distress and Alert Respiratory: positive No respiratory distress Cardiovascular: positive Regular rate & rhythm Extremities: positive Non-tender and No pedal edema Neurologic/Psychiatric: positive Oriented x3 and Mood/affect nml LABS 02/19/25 08:49 02/19/25 08:49 FOLLOW UP Follow Up: 1-2 weeks in clinic TIME SPENT Time Spent in Discharge (Minutes): 20 Discharge Plan Discharge Patient Disposition: Home, Self Care Prescriptions: Continued docusate sodium [Colace] 100 mg capsule 100 mg PO BID PRN (Reason: constipation) Qty: 60 1RF ibuprofen 600 mg tablet 600 mg PO Q6H PRN (Reason: pain) Qty: 30 1RF PNV no.154-iron fumarate-folic 27 mg iron- 1 mg tablet 1 tab PO .daily Qty: 90 4RF glycerin (child) Suppository 1 supp MD DAILY PRN (Reason: Constipation) Qty: 12 0RF Classic 28 mg iron- 800 mcg tablet 1 tab PO DAILY ondansetron 4 mg tablet,disintegrating 4 mg PO Q8H PRN (Reason: nausea and vomiting) Qty: 60 4RF omeprazole 20 mg capsule,delayed release(DR/EC) 20 mg PO BID PRN (Reason: heartburn) Qty: 60 8RF (DME) breast pump Device See Rx Instructions .Route Qty: 1 0RF Rx Instructions: As directed bisacodyl 10 mg suppository 10 mg MD QDAY PRN (Reason: constipation) Qty: 12 3RF Discontinued nifedipine 30 mg tablet extended release 24hr 30 mg PO DAILY Qty: 90 0RF Activity Restrictions/Additional Instructions: pelvic rest 6 weeks. Diet: Regular Print Language: Indonesian Patient Instructions: After a Vaginal Follow-up Care: Joselin De La Cruz MD [Provider Admit Priv/Credential, Obstetrics/Gynecology] Vitals documented within 30 minutes of discharge?: Yes"
[2025-02-22 13:16] VITALS: BP 140/87; TEMP 98.6
--- NOTE | 2025-02-22 14:59 | Labor Flowsheet ---
Labor Flowsheet Datetime Report Generated by CPN: 02/22/2025 14:59 Datetime: 02/22/2025 13:12 VITAL SIGNS NBP Sys/Minnie/Mean (mmHg): 140 : 87 : 97 Pulse: 95 Datetime: 02/20/2025 07:58 SpO2 (%): 98 Datetime: 02/20/2025 07:01 Temperature (C): 37.0 Temperature Route: Oral Datetime: 02/20/2025 06:23 Membranes Ruptured Date/Time: 02/20/2025 05:28 Membranes Rupture Method: Artificial Amniotic Fluid Color: Clear Amniotic Fluid Amount: Small Amniotic Fluid Odor: None Datetime: 02/20/2025 05:45 Stage of : Recovery UTERINE ACTIVITY Monitor Mode: External Monitor Interventions for UA: [place]st Adjusted Frequency (min): 2-4 Quality: Strong Pattern: Normal: <= 5 Contractions in 10 Minutes Resting Tone (Palpate): Relaxed ASSESSMENT A Monitor Mode: External US Monitor Interventions for FHR: Ultrasound Adjusted FHR Baseline Rate : 150 Variability: Moderate 6-25 bpm Decelerations: Late Category: Category II Oxygen Method: Room Air Datetime: 02/20/2025 05:35 LaborFlag: Labor Datetime: 02/20/2025 05:30 Duration (sec): 60-90 Membrane Status: Ruptured Datetime: 02/20/2025 05:02 Provider Reviewed Strip: No Provider Notified (Name): Dr De La Cruz Notification Reason: Status Update; Labor Status; Membrane Status Datetime: 02/20/2025 05:00 Accelerations: 15X15 Procedures: Sterile Vag Exam Patient Position/Activity: Right Lateral COMMUNICATION Communication: RN at Bedside; RN Reviewed Strip Datetime: 02/20/2025 04:59 VAGINAL EXAM Dilatation (cm): 9.0 Effacement (%): 90 Station: 0 Exam by: Chloé Sullivan RN Vaginal Bleeding: Normal Show Cervix, Position: Midposition Lie 'A': Longitudinal Vaginal Exam Comments: SVE after prolonged deceleration Datetime: 02/20/2025 03:18 Cervix, Consistency: Soft Datetime: 02/20/2025 02:55 Epidural Procedure: Completed Datetime: 02/20/2025 02:40 PROCEDURE TIME OUT Procedure Type: @0240 for epidural ANESTHESIA Anesthesia Plans: Epidural Datetime: 02/20/2025 02:34 Communication Comments: PICKUP DRIVER at bedside for epidural Datetime: 02/20/2025 02:30 Contraction Comments: palpating contractions; waiting on anesthesia for epidural Datetime: 02/20/2025 02:00 Comments: baseline unable to be read; patient ambulating in bathroom PAIN Pain Scale: 9 Pain Type: Contraction Datetime: 02/20/2025 00:49 Patient Care Comments: patient in bathroom Datetime: 02/19/2025 23:57 Hygiene: Peripad Changed; Gown Changed; Linens Changed Datetime: 02/19/2025 22:45 MEDICATIONS Cervical Ripening Agents: Cytotec @ Medication Comments: 50mcg vaginally by Dr. De La Cruz Datetime: 02/19/2025 22:29 Pain Presence: None/Denies Datetime: 02/19/2025 21:21 PATIENT CARE IV/Blood Work: IV Started Datetime: 02/19/2025 20:33 I/O Interventions: Ice Chips Given Datetime: 02/19/2025 20:00 FHR Baseline Changes: No Baseline Change Datetime: 02/19/2025 19:41 Respirations: 17 Datetime: 02/19/2025 19:30 MATERNAL ASSESSMENT Level of Consciousness: Alert Headache: Denies Breath Sounds, Left: Clear and Equal Breath Sounds, Right: Clear and Equal Nausea/Vomiting: Hx of Nausea/Vomiting RUQ Epigastric Pain: Denies Maternal Comments: Patient reports reflux throughout and requests tums. Datetime: 02/19/2025 14:05 DTR's/Clonus: No Clonus
== END 2025-02-22 13:00 | disposition home or self-care (01) | DRG 807 ==
LOC: WFO 08:17 → FBP 08:18
PROVIDERS: ADMIT Obstetrics & Gynecology; ATTEND Obstetrics & Gynecology
DX: E87.6 Hypokalemia; Z3A.39 39 weeks gestation of pregnancy; Z37.0 Single live birth; O69.81X0 Labor and delivery complicated by cord around neck, without compression, not applicable or unspecified; Z91.81 History of falling; O21.2 Late vomiting of pregnancy; O99.820 Streptococcus B carrier state complicating pregnancy; O99.284 Endocrine, nutritional and metabolic diseases complicating childbirth; O13.4 Gestational [pregnancy-induced] hypertension without significant proteinuria, complicating childbirth